=== PATIENT | male | born 1945 | race Caucasian/White ===

== ENCOUNTER 2018-02-08 21:41 | Outpatient (REF) | payer MEDICARE, SELFPAY ==
[2018-02-08 22:43] LABS: Anion Gap 9.2 mmol/L (3-11); BUN 16 mg/dL (7-18); CO2 26.8 mmol/L (21.0-32.0); CREATININE 1.04 mg/dL (0.70-1.30); Calcium 9.6 mg/dL (8.5-10.1); Chloride 101 mmol/L (98-107); Cholesterol 121 mg/dL (50-200); Glucose 217 mg/dL (70-100); HDL Cholesterol 33 mg/dL (40-60); LDL CHOLESTEROL 64 mg/dL (<100); Potassium 4.1 mmol/L (3.5-5.1); Sodium 137 mmol/L (136-145); Triglyceride 211 mg/dL (30-150)
== END 2018-02-08 22:01 ==
LOC: NCHCN 21:41
PROVIDERS: PCP Nurse Practitioner Family; Visit Provider Specialist/Technologist Athletic Trainer
DX: I10 Essential (primary) hypertension (principal); E11.40 Type 2 diabetes mellitus with diabetic neuropathy, unspecified; I73.9 Peripheral vascular disease, unspecified; K22.70 Barrett's esophagus without dysplasia
CPT/HCPCS: 80048; 80061; 83721

== ENCOUNTER → 2018-02-25 10:20 | Outpatient (CLI) | payer MEDICARE, SELFPAY ==
--- NOTE | 2018-02-25 09:19 | DI.RAD_ITS ---
SYMPTOM/DIAGNOSIS: CHRONIC LOW BACK PAIN, M54.5, NEURO CLAUDICATION SYMPTOMS, H/O BACK SURGERY, RECENT FALL LUMBAR SPINE: AP, lateral and bilateral oblique views. There are five lumbar type vertebral bodies. There is normal alignment. No spondylolysis or spondylolisthesis is seen. There are again seen post surgical changes and posterior spinal rods and intervertebral cage at L 4-5. The orthopedic hardware appears stable. No acute fractures or subluxations are seen in the lumbar spine. Moderate degenerative changes are present throughout the lumbar spine. Note is made of calcification of the abdominal aorta and aneurysmal dilatation of the distal aorta. This has been present on prior examinations. IMPRESSION: No acute fracture or subluxation in the lumbar spine. Moderate degenerative changes in the lumbar spine. Distal abdominal aortic aneurysm. For further evaluation, abdominal ultrasound may be considered.
== END ==
PROVIDERS: PCP Nurse Practitioner Family; Visit Provider Specialist/Technologist Athletic Trainer
DX: M54.5 Low back pain (principal); M47.816 Spondylosis without myelopathy or radiculopathy, lumbar region; I71.4 Abdominal aortic aneurysm, without rupture; Z98.890 Other specified postprocedural states
CPT/HCPCS: 72110

== ENCOUNTER 2018-02-26 01:52 | Outpatient (CLI) | payer MEDICARE, SELFPAY ==
--- NOTE | 2018-02-26 14:26 | DI.MRI_ITS ---
SYMPTOMS/DIAGNOSIS: CHRONIC LOW BACK PAIN, M54.5, WORSENING, H/O SPINE SURGERY, SEVERE BILATERAL NEUROPATHY MRI OF THE LUMBAR SPINE: Routine noncontrast examination was performed. The conus medullaris has a normal appearance and location. There is again seen an abdominal aortic aneurysm measuring 4.2 cm in AP diameter. This is unchanged. There are postsurgical changes of a prior laminectomy at L4-L5. At L5-S1, there is a disc herniation eccentric to the left causing mild left neural foraminal narrowing. This is unchanged compared to the prior examination. No significant central spinal canal stenosis is seen. At L4-L5, there is a persistent disc herniation eccentric to the right. There is no change in the size of the central spinal canal. There is moderate narrowing of the right neural foramen again noted. At L3-L4, there is disc desiccation. There is a diffuse disc bulge. These findings cause central spinal canal stenosis, which appears stable. No neural foraminal stenosis is seen. L2-3 and L1-2 show no focal disc herniation, central spinal canal or neural foraminal stenosis. IMPRESSION: 1. Stable postsurgical changes at L4-L5. 2. Stable degenerative changes throughout the lumbar spine resulting in right L4-5 and left L5-S1 neural foraminal stenosis. There is also narrowing of the central spinal canal at L3-4. These all appear stable.
== END 2018-02-26 02:12 ==
PROVIDERS: PCP Nurse Practitioner Family; Visit Provider Specialist/Technologist Athletic Trainer
DX: M54.5 Low back pain (principal); G89.29 Other chronic pain; M51.37 Other intervertebral disc degeneration, lumbosacral region; I71.4 Abdominal aortic aneurysm, without rupture
CPT/HCPCS: 72148

== ENCOUNTER 2018-03-23 08:48 | Outpatient (CLI) | payer MEDICARE, SELFPAY ==
--- NOTE | 2018-03-23 06:00 | DI.RAD_ITS ---
SYMPTOM/DIAGNOSIS: LUMBAR RADICULOPATHY, LUMBAR EPIDURAL STEROID INJECTION C-ARM: Fluoroscopy Time: 23.3 seconds Fluoroscopy was provided for guidance with lumbar spine pain clinic injections. Please see procedure note for details.
[2018-03-23 08:53] VITALS: PULSE 72; RESP 18; TEMP 36.7; O2SAT 100
[2018-03-23] MEDS: Omnipaque 240 MG/ML 50 ML BTL IJ (09:27)
--- NOTE | 2018-03-23 09:27 | PDOC.PAIN ---
Pain Clinic Procedure Note Current Active Problems Problem Status Onset Lumbar radiculitis Acute Lumbar Epidural Steroid Injection Procedure Note COMMENTS: I did review Ms. Emmanuel's note from 03/18/18 and his recent lumbar spine MRI. He has a L4-S1 fusion and adjacent segment disease at L3-L4. RASHAUN CASTAÑEDA has been referred to the [facility] for lumbar epidural steroid injection. The patient was greeted by the nurse who verified patients name and . Patient was then taken to the fluoroscopy suite. The patient was interviewed and the medial record reviewed. There were no medical, pharmacologic, radiographic, or other structural contraindications to attempting fluoroscopically guided lumbar epidural steroid injection. Risks and expected side effects as well as potential benefits of the procedure were reviewed and voiced concerns expressed. The patient consent form was signed and witnessed. Standard patient time-out procedure was performed. The patient was placed in the prone position on the fluoroscopy table and automated blood pressure cuff and pulse oximeter applied. The skin entry point for entering/approaching the epidural space at the right side of the L3-L4 interlaminar space and marked. Following thorough chlorhexadine preparation of the skin and draping and 1% lidocaine infiltration of the skin entry point and subcutaneous tissues, a 18 gauge Touhy needle was placed under fluoroscopic guidance and with loss of resistance technique into the epidural space. Needle tip placement and depth were aided and confirmed by fluoroscopy. There was no paresthesia or return of blood or CSF through the needle. 1 cc's of Omnipaque 240 was injected with clear epidural spread confirmed with fluoroscopy. 80mg depomedrol was injected. There was not any unusual discomfort expressed by RASHAUN CASTAÑEDA. Patient's vital signs were stable throughout the procedure and were as recorded in nursing records. Follow up plans and appointments were discussed with patient. Post procedure instruction was given as documented in nursing records and having met discharge criteria and was discharged from the [facility]. COMMENTS: If this procedure is found to be helpful, it can be completed up to 3 times per year.
[2018-03-23 09:28] VITALS: BP 130/67; PULSE 75; RESP 15; O2SAT 100
[2018-03-23] MEDS: methylPREDNISolone ACETATE 80 MG/ML VIAL IM (09:28)
== END 2018-03-23 09:08 ==
PROVIDERS: PCP Nurse Practitioner Family; Visit Provider Preventive Medicine Occupational Medicine
DX: M54.16 Radiculopathy, lumbar region (principal)
CPT/HCPCS: 62321; 72100; J1040; Q9967

== ENCOUNTER 2018-06-02 10:21 | Outpatient (CLI) | payer MEDICARE, SELFPAY ==
[2018-06-02 11:04] LABS: CREATININE 1.04 mg/dL (0.70-1.30)
[2018-06-02] MEDS: Omnipaque 350 MG/ML 100 ML BTL IJ (11:33)
--- NOTE | 2018-06-02 11:35 | DI.CT_ITS ---
SYMPTOMS/DIAGNOSIS: PAIN, ABDOMINAL AORTIC ANEURYSM CT ANGIOGRAPHY OF THE ABDOMEN AND PELVIS: Routine examination was performed. Comparison is 03/18/17. Pulmonary fibrotic changes are seen in the lung bases. There is extensive atherosclerosis of the abdominal aorta. There is an infrarenal abdominal aortic aneurysm measuring 4.5 cm transverse x 4.3 cm AP. 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 The celiac axis and superior mesenteric artery appear patent. There is atherosclerosis at the origins of the renal arteries, but no significant stenosis or occlusion is present. The liver, gallbladder, pancreas, spleen and adrenal glands are unremarkable. The kidneys show normal and symmetric enhancement. There are bilateral nonobstructing renal calculi. The urinary bladder is intact. The prostate gland appears enlarged and it does appear to impinge upon the base of the urinary bladder. The bowel shows no evidence of obstruction or inflammation. No findings to suggest an acute appendicitis are present. There is no significant abdominal or pelvic adenopathy, ascites or pneumoperitoneum. Note is made of a cyst in the left lobe of the liver. This is unchanged. Postsurgical changes are again seen in the lower lumbar spine. There are degenerative changes present throughout the spine. IMPRESSION: 1. Stable 4.5 x 4.3 cm infrarenal abdominal aortic aneurysm. 2. 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
== END 2018-06-02 10:41 ==
PROVIDERS: PCP Nurse Practitioner Family; Visit Provider Physician Assistant Surgical
DX: R10.9 Unspecified abdominal pain; I71.4 Abdominal aortic aneurysm, without rupture; I74.5 Embolism and thrombosis of iliac artery; J84.10 Pulmonary fibrosis, unspecified; N20.0 Calculus of kidney; N40.0 Benign prostatic hyperplasia without lower urinary tract symptoms; E11.9 Type 2 diabetes mellitus without complications; I10 Essential (primary) hypertension; E78.00 Pure hypercholesterolemia, unspecified
CPT/HCPCS: 74174; 82565; J3490

== ENCOUNTER 2018-08-20 12:52 | Emergency (ER) | payer MEDICARE, SELFPAY ==
[2018-08-20 13:04] VITALS: BP 138/77; PULSE 72; RESP 16; TEMP 36.6; O2SAT 96
[2018-08-20 14:15] LABS: Abs Immature Grans 0.04 k/cumm (0.0-0.09); Absolute Basophil Count 0.02 k/cumm (0.0-0.2); Absolute Lymphocyte Count 2.12 k/cumm (1.2-3.4); Absolute Monocyte Count 0.83 k/cumm (0.11-0.7); Absolute Neutrophil Count 6.42 k/cumm (1.2-6.7); Basophils % 0.2; HCT 40.8 % (40.0-50.0); HGB 13.9 g/dL (13.5-17.5); Immature Grans % 0.4; Lymphocytes % 21.3; Mean Corp. HGB Concentration 34.1 g/dL (32.0-36.0); Mean Corpuscular Hemoglobin 30.8 pg (27.0-33.0); Mean Corpuscular Volume 90.3 fL (80-95); Monocytes % 8.4; Neutrophils % 64.7; Platelet Count 185 x1000/uL (130-400); RBC 4.52 m/cumm (4.50-6.00); RBC Distribution Width 13.3 % (11.8-14.1); White Blood Cell Count 9.93 k/cumm (4.4-10.8)
[2018-08-20 14:19] LABS: Bilirubin Negative (Negative); Blood Negative (Negative); Clarity Clear (Clear); Glucose Negative (Negative); Ketones Negative (Negative); Leukocyte Esterase Trace (Negative); Nitrite Negative (Negative); Specific Gravity 1.015 (1.005-1.025)
[2018-08-20] MEDS: Omnipaque 350 MG/ML 100 ML BTL IJ (14:26)
[2018-08-20 14:30] LABS: ALT 59 U/L (12-78); AST 25 U/L (15-37); Albumin 3.3 g/dL (3.4-5.0); Alkaline Phosphatase 97 U/L (46-116); Anion Gap 10.3 mmol/L (3-11); BUN 12 mg/dL (7-18); Bilirubin, Total 0.6 mg/dL (0.2-1.0); CO2 24.7 mmol/L (21.0-32.0); CREATININE 0.98 mg/dL (0.70-1.30); Calcium 9.4 mg/dL (8.5-10.1); Chloride 101 mmol/L (98-107); Glucose 120 mg/dL (70-100); Sodium 136 mmol/L (136-145); Total Protein 6.8 g/dL (6.4-8.2)
--- NOTE | 2018-08-20 14:31 | DI.CT_ITS ---
SYMPTOMS/DIAGNOSIS: AAA REPAIRED 1 WK AGO, FEM STENTS PLACED LT FLANK CT ANGIOGRAPHY ABDOMEN AND PELVIS: CT angiography was performed with multi slice acquisition and multi planar and 3D reconstruction. CT angiography of the abdomen and pelvis was performed with a bolus infusion of 100 cc's of Omnipaque 350. The patient has reportedly had a recent aortoiliac stent placed for abdominal aortic aneurysm. Stent noted in place which appears to be an aortobiiliac stent. No evidence of leakage. 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 SMA and renal arteries appear intact bilaterally. OLE appears to reconstitute by collateral circulation. No evidence of stent occlusion. No evidence of occlusion of internal or external iliac arteries on either side. No free air or free intraperitoneal fluid. No retroperitoneal hematoma. Liver, spleen, and pancreas appear normal. Gallbladder and bile ducts are CT normal. The adrenals are unremarkable bilaterally. Kidneys are unremarkable bilaterally. No evidence of urinary tract obstruction or calcification. No significant abdominal wall hernia seen. No abdominal or pelvic adenopathy seen. No evidence of bowel obstruction. Appendix is not specifically visualized but there is no evidence of appendicitis or diverticulitis. CONCLUSION: No evidence of acute abdominal process.
[2018-08-20 14:36] LABS: Epithelial Cells Rare HPF (Negative); RBC 0-2 (0-2)
[2018-08-20 14:37] LABS: Bacteria Rare HPF (Negative); C & S Indicated? Yes; Casts Negative LPF (Negative); Crystals Negative HPF (Negative); Mucus Negative (Negative)
--- NOTE | 2018-08-20 14:52 | ED.GENADUL_ITS ---
Discharge Plan Disposition Patient Disposition: HOME Condition: Good Discharge Details Chief Complaint: FlankPain Clinical Impression: Left flank pain, Constipation Primary Care Provider: Volodymyr Trujillo ED Provider: Roge Sky Home Meds and New Rx's Prescriptions: New cephalexin [Keflex] 500 mg capsule 500 mg PO QID 7 Days Qty: 28 RF: 0 No Action acetaminophen [Tylenol Extra Strength] 500 mg tablet 1,000 mg PO TID PRNRF: 0 albuterol sulfate [Ventolin HFA] 90 mcg/actuation HFA aerosol inhaler 1 - 2 puff IH Q6H PRNRF: 0 atorvastatin 80 mg tablet 80 mg PO DAILY RF: 0 gabapentin 600 mg tablet 600 mg PO QID RF: 0 glipizide 10 MG tablet 10 mg PO DAILY RF: 0 finasteride 5 MG tablet 5 mg PO DAILY RF: 0 metformin [Glucophage] 1,000 mg tablet 1,000 mg PO BID RF: 0 lisinopril 5 MG tablet 5 mg PO DAILY AM RF: 0 pantoprazole [Protonix] 20 MG tablet,delayed release (DR/EC) 20 mg PO DAILY AM RF: 0 Discharge Instructions Instructions: Constipation (ED), Flank Pain (ED) Additional Instructions: Please take [id number] Colace as needed. Please use an [id number] enema to help with your constipation. If you notice any burning when you pee, or worsening of your symptoms please take the antibiotic for a potential urinary tract infection. If you notice any worsening of your symptoms, or any new symptoms such as vomiting, diarrhea, fever, chills, shortness of breath, chest pain, numbness, weakness, or fainting , please return immediately to the emergency department for reevaluation. Please follow up with your primary care provider as soon as possible for reassessment and reevaluation. As always, it was a pleasure participating in your medical care today. Referrals: Volodymyr Trujillo [Primary Care Provider] - Medical Decision Making This is a pleasant 73-year-old male with a past medical history of AAA repair and femoral stent placement, both of which were done emergently 4 days ago, who presents today for mild left-sided flank pain which she states is actually getting better over the last 24 hours. It seems to be improved with having bowel movements. He does appear notably constipated and is only having small amounts of firm stool. He denies any urinary complaints but does state that the symptoms feel slightly similar to previous kidney stones. Exam demonstrates no evidence of bounding aneurysm, vascular exam appears to be at baseline, with no evidence of acute occlusion. CT scan demonstrates no evidence of acute abdominal process, worsening aneurysm or other atypical component. Repeat physical exam demonstrates continued normal stable vital signs, with an unremarkable abdominal exam. Urinalysis shows no evidence of significant infection or blood. There is 3-5 WBCs and trace leukocyte esterase. I feel that this is insignificant. The patient certainly shows no clinical signs of pyelonephritis with no fever chills or white count. Renal function is stable. This time I feel that the patient's symptoms are most likely secondary to a psoas muscle strain potentially from the recent surgery, potentially constipation, or other nonemergent etiology. However with a mild leukocyte esterase, and is mild flank pain we did recommend initial management with Colace, heating pad, and enema to help resolve his constipation. If these do not improve his symptoms and the patient does develop dysuria or hematuria I have given him a prescription for which he can fill for urinary tract infection which clinically at this time does not appear to be of any significance. Discussed red flags which to return, and the importance of close follow-up. I have extensively reviewed the treatment plan and discharge instructions with the patient and their family. I have addressed all patient concerns at this time. The patient and family was made aware of what symptoms to monitor for that would warrant a return to the emergency department. Discussed the plan with the george ent and family, they demonstrate verbal understanding and agreement with our assessment and plan at this time. CT ANGIOGRAPHY ABDOMEN AND PELVIS: CT angiography was performed with multi slice acquisition and multi planar and 3D reconstruction. CT angiography of the abdomen and pelvis was performed with a bolus infusion of 100 cc's of Omnipaque 350. The patient has reportedly had a recent aortoiliac stent placed for abdominal aortic aneurysm. Stent noted in place which appears to be an aortobiiliac stent. No evidence of leakage. 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 SMA and renal arteries appear intact bilaterally. OLE appears to reconstitute by collateral circulation. No evidence of stent occlusion. No evidence of occlusion of internal or external iliac arteries on either side. No free air or free intraperitoneal fluid. No retroperitoneal hematoma. Liver, spleen, and pancreas appear normal. Gallbladder and bile ducts are CT normal. The adrenals are unremarkable bilaterally. Kidneys are unremarkable bilaterally. No evidence of urinary tract obstruction or calcification. No s ignificant abdominal wall hernia seen. No abdominal or pelvic adenopathy seen. No evidence of bowel obstruction. Appendix is not specifically visualized but there is no evidence of appendicitis or diverticulitis. CONCLUSION: No evidence of acute abdominal process. HPI General Date/Time Provider Initiated Documentation: 08/20/18 13:00 . HPI Narrative: This is a 73-year-old male who presents today for evaluation of left- sided flank pain. 4 days ago at [facility] the patient had femoral stents placed for chronic vascular stenosis, he also has a AAA which had a patch placed at that time. Neither surgery was emergent. He has been mildly sore since the procedure, however over the last 36 hours the patient has had development of mild left-sided flank achiness. It is worse with movement, and seems to be associated with notable constipation. He states that when he does have a small bowel movement he has significant improvement of the pain. He states that over the last 24 hours the pain is still at notably better but is still present. He does have a history of kidney stones, diabetes, and a TIA in the past. He does take a daily aspirin. He states that the symptoms feel similar to his previous kidney stones. He denies any dysuria, hematuria, fever, chills, increased urinary frequency, nausea, vomiting or diarrhea. He denies any other complaints at this time. He denies any new weakness of his lower extremities or change in color for his lower extremities. He denies any IV or illicit drug use or pertinent family history. Related Data Home Medications Medication Instructions Recorded Confirmed finasteride 5 mg PO DAILY 05/17/14 04/26/18 glipizide 10 mg PO DAILY 05/17/14 04/26/18 lisinopril 5 mg PO DAILY AM 03/16/17 04/26/18 pantoprazole [Protonix] 20 mg PO DAILY AM 03/16/17 04/26/18 albuterol sulfate HFA 90 1 - 2 puff IH Q6H PRN gm 03/10/18 04/26/18 mcg/actuation aerosol inhaler atorvastatin 80 mg tablet 80 mg PO DAILY 03/10/18 04/26/18 gabapentin 600 mg tablet 600 mg PO QID tab-cap 03/10/18 04/26/18 metformin 1,000 mg tablet 1,000 mg PO BID tab 03/10/18 04/26/18 acetaminophen 500 mg tablet 1,000 mg PO TID PRN tab 03/18/18 04/26/18 cephalexin [Keflex] 500 mg PO QID 7 Days #28 cap 08/20/18 Previous Rx's Medication Instructions Recorded cephalexin [Keflex] 500 mg PO QID 7 Days #28 cap 08/20/18 Allergies Allergy/AdvReac Type Severity Reaction Status Date / Time No Known Drug Allergies Allergy Unverified 04/26/18 11:45 General Stated Complaint: FlankPain SARA: 3 Review of Systems Review of Systems All systems reviewed & are unremarkable except as noted in HPI and below PFSH Medical History Abscess of prostate (Acute) Cholelithiasis (Acute) Malignant neoplasm of bladder (Acute) Barretts esophagus (Chronic) Benign prostatic hyperplasia (Chronic) COPD (chronic obstructive pulmonary disease) (Chronic) Chronic low back pain (Chronic) 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 Father No problems noted. Social History Smoking/Tobacco Use Status: Current every day Alcohol Intake: never Drug use: Never Substance use type: does not use What is your relationship status?: living with partner Panel score (0-1 are the most socially isolated patients): 1 Mena/Yarsani: [employer] Seatbelt use: always Helmet use: Yes Working smoke detector in home: Yes Fire extinguisher in home: Yes Carbon monox detector in home: Yes Firearms in home: Yes Do you feel safe at home: Yes Do you feel safe in your relationship?: Yes Exam Narrative Exam Narrative: 1.Const: Well-nourished, Well-developed, appearing stated age 2.Eyes: PERRL, no conjunctival injection, and symmetrical lids. 3.ENT: Atraumatic external nose and ears. Moist MM. Neck: Symmetric, trachea midline, No thyromegaly. 4.CVS: +S1/S2, No murmurs or gallops. Peripheral pulses 2+ and equal in all extremities. Brisk capillary refill in all extremities. 5.RESP: Unlabored respiratory effort. Clear to auscultation bilaterally. No wheezes rales or rhonchi 6.GI: Soft, Nontender/Nondistended, No hepatosplenomegaly. No guarding or rebound. No pulsatile abdominal mass, no guarding or rebound in all quadrants of the abdomen. No flank or CVA tenderness. Postoperative sites demonstrate minimal bruising, but no evidence of focal aneurysm, or significant groin tenderness. Testicular exam demonstrates no evidence of significant testicular tenderness, no clinical evidence of torsion. Minimal swelling of the scrotum. 7.MSK: Normocephalic/Atraumatic, Extremities w/o deformity or ttp No cyanosis or clubbing, Normal movement of all extremities. No evidence of cool pale legs. Pulses are faint but present bilaterally, capillary refill is 3 seconds. 8.Skin: Warm, Dry. No rashes or lesions. 9.Neuro: pharmaceutical service representative II-XII grossly intact. Sensation grossly intact, no focal neurologic deficits. 10.Psych: (AAO) x3. Appropriate mood and affect Course Vital Signs Temperature 36.6 C 08/20/18 13:04 Pulse 72 08/20/18 13:04 Respiratory Rate 16 08/20/18 13:04 Blood Pressure 138/77 08/20/18 13:04 Pulse Oximetry 96 08/20/18 13:04 Temperature 36.6 C 08/20/18 13:04 Temperature Source Skin 08/20/18 13:04 Pulse 72 08/20/18 13:04 Respiratory Rate 16 08/20/18 13:04 Blood Pressure 138/77 08/20/18 13:04 Blood Pressure Position Sitting 08/20/18 13:04 Pulse Oximetry 96 08/20/18 13:04 Oxygen Delivery Method Room Air 08/20/18 13:04 Oxygen Flow Rate 0 08/20/18 13:04 Lab/Test Results Lab/Test Results: 08/20/18 14:05 Urine - Reflex from Ua Urine Culture - Pending Laboratory Tests Range/Units 08/20/18 08/20/18 08/20/18 14:00 14:00 14:05 WBC (4.4-10.8) k/cumm 9.93 RBC (4.50-6.00) m/cumm 4.52 Hgb (13.5-17.5) g/dL 13.9 Hct (40.0-50.0) % 40.8 MCV (80-95) fL 90.3 MCH (27.0-33.0) pg 30.8 MCHC (32.0-36.0) g/dL 34.1 RDW (11.8-14.1) % 13.3 Plt Count (130-400) x1000/uL 185 MPV (8.0-11.0) fL 10.0 Immature Gran % 0.4 Neutrophils % 64.7 Lymphocytes % 21.3 Monocytes % 8.4 Eosinophils % 5.0 Basophils % 0.2 Absolute Neutrophils (1.2-6.7) k/cumm 6.42 Absolute Lymphocytes (1.2-3.4) k/cumm 2.12 Absolute Monocytes (0.11-0.7) k/cumm 0.83 H Absolute Eosinophils (0.0-0.7) k/cumm 0.50 Absolute Basophils (0.0-0.2) k/cumm 0.02 Sodium (136-145) mmol/L 136 Potassium (3.5-5.1) mmol/L 4.0 Chloride (98-107) mmol/L 101 Carbon Dioxide (21.0-32.0) mmol/L 24.7 Anion Gap (3-11) mmol/L 10.3 BUN (7-18) mg/dL 12 Creatinine (0.70-1.30) mg/dL 0.98 Estimated GFR/1.73 m2 (mL/min/1.73m2) >= 60.00 Glucose (70-100) mg/dL 120 H Calcium (8.5-10.1) mg/dL 9.4 Total Bilirubin (0.2-1.0) mg/dL 0.6 AST (15-37) U/L 25 ALT (12-78) U/L 59 Alkaline Phosphatase (46-116) U/L 97 Total Protein (6.4-8.2) g/dL 6.8 Albumin (3.4-5.0) g/dL 3.3 L Urine Color (Yellow) Yellow Urine Clarity (Clear) Clear Urine pH (5-8) 6.0 Ur Specific [place] (1.005-1.025) 1.015 Urine Protein (Negative) mg/dL Negative Urine Ketones (Negative) mg/dL Negative Urine Blood (Negative) Negative Urine Nitrite (Negative) Negative Urine Bilirubin (Negative) Negative Urine Urobilinogen (Up TO 0.2) EU/dL 1.0 H Ur Leukocyte Esterase (Negative) Trace H Urine RBC (0-2) 0-2 Urine WBC (0-5) HPF 3-5 Ur Epithelial Cells (Negative) HPF Rare Urine Crystals (Negative) HPF Negative Urine Bacteria (Negative) HPF Rare Urine Casts (Negative) LPF Negative Urine Mucus (Negative) Negative Ur Culture Indicated? Yes Urine Glucose (Negative) mg/dL Negative
[2018-08-20 15:22] VITALS: BP 138/77; PULSE 72; RESP 16; TEMP 36.6; O2SAT 96
== END 2018-08-20 15:22 | disposition home or self-care (01) ==
PROVIDERS: Emergency Provider Student in an Organized Health Care Education/Training Program; PCP Specialist/Technologist Athletic Trainer
DX: R10.9 Unspecified abdominal pain (principal); K59.00 Constipation, unspecified; E11.9 Type 2 diabetes mellitus without complications; J44.9 Chronic obstructive pulmonary disease, unspecified; Z95.828 Presence of other vascular implants and grafts; F17.210 Nicotine dependence, cigarettes, uncomplicated; I10 Essential (primary) hypertension
CPT/HCPCS: 36415; 80053; 99285; 74174; 81003; 81015; 85025; 87086; 99284; J3490

== ENCOUNTER 2019-05-19 12:35 | Emergency (ER) | payer MEDICARE, SELFPAY ==
[2019-05-19 12:41] VITALS: BP 151/69; PULSE 78; RESP 16; TEMP 36.4; O2SAT 98
--- NOTE | 2019-05-19 13:00 | DI.RAD_ITS ---
EXAM: XR RIBS RT W PA LAT CHEST CLINICAL HISTORY: Right rib pain fall TECHNIQUE: 2D digital imaging was performed. COMPARISON: CHEST 2 VIEWS PA,LAT from 08/04/2016 CT ABDOMEN/ PELVIS CTA from 08/20/2018 FINDINGS: MEDIASTINUM: Normal. HEART: Normal. PULMONARY VASCULATURE: Normal. LUNGS: Unchanged scarring in the right lung base. No focal consolidating infiltrates. PLEURAL SPACE: No pleural effusion or pneumothorax. BONE:No rib fractures identified. Degenerative changes are seen in the spine. OTHER FINDINGS:Aorta iliac stent is again noted in the abdomen. IMPRESSION: No acute pulmonary findings. No right rib fracture. DATA REPOSITORY: RADIATION DOSE DELIVERED:
--- NOTE | 2019-05-19 13:10 | W.ED.GENAD ---
Discharge Plan Disposition Patient Disposition: HOME Condition: Stable Discharge Details Chief Complaint: Chest/Rib Clinical Impression: Rib pain on right side Primary Care Provider: Volodymyr Trujillo ED Provider: Alda Myers Home Meds and New Rx's Prescriptions: New ibuprofen 600 mg tablet 600 mg PO Q6H PRN (Reason: fever or pain) Qty: 20 RF: 0 Continued albuterol sulfate [Ventolin HFA] 90 mcg/actuation HFA aerosol inhaler 1 - 2 puff IH Q6H PRNRF: 0 atorvastatin 80 mg tablet 80 mg PO DAILY RF: 0 gabapentin 600 mg tablet 600 mg PO QID RF: 0 glipizide 10 MG tablet 10 mg PO DAILY RF: 0 finasteride 5 MG tablet 5 mg PO DAILY RF: 0 metformin [Glucophage] 1,000 mg tablet 1,000 mg PO BID RF: 0 lisinopril 5 MG tablet 5 mg PO DAILY AM RF: 0 pantoprazole [Protonix] 20 MG tablet,delayed release (DR/EC) 20 mg PO DAILY AM RF: 0 aspirin [Aspir-81] 81 mg Tablet,Delayed Release (Dr/Ec) 81 mg PO DAILY RF: 0 Discharge Instructions Instructions: Chest Wall Pain (ED) Additional Instructions: Follow up with primary care provider in 3-5 days. Return to ED sooner if any worsening or concerns. Increase oral fluids. Please take Tylenol or Ibuprofen with food every 4-6 hours as needed for pain and swelling. Referrals: Volodymyr Trujillo [Primary Care Provider] - Medical Decision Making 23-year-old male presents with right sided rib pain after a fall onto ice approximately 1-1/2 weeks ago. Patient states that he heard a pop night before last and had increased pain. He denies fever chills or productive cough. He denies any other symptoms. Does have a history of a AAA, Campoverde's esophagus, BPH, chronic low back pain, and type 2 diabetes. COMPARISON: CHEST 2 VIEWS PA,LAT from 08/04/2016 CT ABDOMEN/ PELVIS CTA from 08/20/2018 FINDINGS: MEDIASTINUM: Normal. HEART: Normal. PULMONARY VASCULATURE: Normal. LUNGS: Unchanged scarring in the right lung base. No focal consolidating infiltrates. PLEURAL SPACE: No pleural effusion or pneumothorax. BONE:No rib fractures identified. Degenerative changes are seen in the spine. OTHER FINDINGS:Aorta iliac stent is again noted in the abdomen. IMPRESSION: No acute pulmonary findings. No right rib fracture. Discussed with patient x-ray results noted times unclear what is causing his symptoms other than musculoskeletal chest wall pain. Offered to possibly draw blood and get a urine to rule out other underlying pathophysiology patient declined at this time. He requests a ibuprofen prescription, prescription written for 600 mg ibuprofen 3 times a day as needed for pain. Given strict return instructions, verbalized understanding. Patient remained hemodynamically stable throughout stay. HPI General Mode of arrival: ambulatory. Date/Time Provider Initiated Documentation: 05/19/19 13:02. Limitations to Documentation: no limitations. Information obtained by: patient. HPI Narrative: 23-year-old male presents with right sided rib pain after a fall onto ice approximately 1-1/2 weeks ago. Patient states that he heard a pop night before last and had increased pain. He denies fever chills or productive cough. He denies any other symptoms. Does have a history of a AAA, Campoverde's esophagus, BPH, chronic low back pain, and type 2 diabetes. Related Data Home Medications Medication Instructions Recorded Confirmed finasteride 5 mg PO DAILY 05/17/14 05/19/19 glipizide 10 mg PO DAILY 05/17/14 05/19/19 lisinopril 5 mg PO DAILY AM 03/16/17 05/19/19 pantoprazole [Protonix] 20 mg PO DAILY AM 03/16/17 05/19/19 albuterol sulfate 90 mcg/actuation 1 - 2 puff IH Q6H PRN gm 03/10/18 05/19/19 aerosol inhaler atorvastatin 80 mg tablet 80 mg PO DAILY 03/10/18 05/19/19 gabapentin 600 mg tablet 600 mg PO QID tab-cap 03/10/18 05/19/19 metformin 1,000 mg tablet 1,000 mg PO BID tab 03/10/18 05/19/19 aspirin [Aspir-81] 81 mg PO DAILY 05/19/19 05/19/19 ibuprofen 600 mg PO Q6H PRN #20 tab 05/19/19 Previous Rx's Medication Instructions Recorded ibuprofen 600 mg PO Q6H PRN #20 tab 05/19/19 Allergies Allergy/AdvReac Type Severity Reaction Status Date / Time No Known Drug Allergies Allergy Unverified 05/19/19 12:46 General Stated Complaint: Chest/Rib SARA: 3 Review of Systems Narrative: Constitutional: Negative for weight loss, alert and oriented, well groomed, normal body habitus, appears comfortable. HEENT: Denies trauma, headaches, blurry vision, nasal discharge, sore throat, trouble swallowing. Chest: Denies palpitations, irregular rhythm, hypertension. Complaining of right-sided lower rib pain after a fall. Respiratory: Denies Shortness of breath, cough, hemoptysis. GI: Denies abdominal pain, nausea, vomiting, diarrhea, constipation. : Denies dysuria, hematuria, flank pain, rectal bleeding. Neuro: Denies dizziness, blurry vision, weakness, syncope, headache or facial numbness. Hematologic: Denies easy bruising, intolerance to heat or cold, hair loss. 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 Father No problems noted. Social History Smoking/Tobacco Use Status: Current every day Tobacco Type: cigarettes Alcohol Intake: never Drug use: Never Substance use type: does not use What is your relationship status?: living with partner Panel score (0-1 are the most socially isolated patients): 1 Mena/Lutheran: jew Seatbelt use: always Helmet use: Yes Working smoke detector in home: Yes Fire extinguisher in home: Yes Carbon monox detector in home: Yes Firearms in home: Yes Do you feel safe at home: Yes Do you feel safe in your relationship?: Yes Exam Narrative Exam Narrative: Constitutional: Allert and oriented x3. Appears stated age. Normal body habitus. Head: Normocephalic, no trauma. Eyes: Pupils PERRLA, Red reflex noted, EOM's intact. Eyelids symmetrical withour lesions, discharge, or swelling. ENT: Bilateral TM's WNL, External ear normal to inspection, no mastoid TTP, swelling, or erythema, Nasal turbinates WNL, no nasal discharge. Normal dentition, Posterior pharynx WNL, no exudate. Chest: RRR, Normal S1, S2, distal pulses intact. Chest wall is tender to palpation over the right posterior flank and right lateral flank. No crepitus or step-off palpated. Resp: Lungs diminished to auscultation bilaterally, no wheezes, rales, or rhonchi. Musculoskeletal: Normal gait, 5/5 strength to all four extremities. Skin: No suspicious rashes or lesions. Capillary refill less than 2 sec. Neurologic: Cranial nerves II-XII intact. Alert and oriented x 3. DTR's intact. Hematologic/Lymphatic: No ecchymosis, no lymphadenopathy. Course Vital Signs Vital signs: Vital Signs Temperature 36.4 C L 05/19/19 12:41 Pulse 78 05/19/19 12:41 Respiratory Rate 16 05/19/19 12:41 Blood Pressure 151/69 H 05/19/19 12:41 Pulse Oximetry 98 05/19/19 12:41 Temperature 36.4 C L 05/19/19 12:41 Temperature Source Temporal Artery Scan 05/19/19 12:41 Pulse 78 05/19/19 12:41 Respiratory Rate 16 05/19/19 12:41 Respiratory Effort Non-Labored 05/19/19 13:06 Respiratory Depth Normal 05/19/19 13:06 Respiratory Pattern Normal 05/19/19 13:06 Blood Pressure 151/69 H 05/19/19 12:41 Blood Pressure Position Sitting 05/19/19 12:41 Pulse Oximetry 98 05/19/19 12:41 Oxygen Delivery Method Room Air 05/19/19 12:41 Oxygen Flow Rate 0 05/19/19 12:41 Pain Level 7 05/19/19 13:06
[2019-05-19] MEDS: Acetaminophen 500 MG TAB PO (13:32)
[2019-05-19 14:09] VITALS: BP 153/67; PULSE 68; RESP 16; TEMP 36.7; O2SAT 96
[2019-05-19 14:15] VITALS: BP 153/67; PULSE 56; RESP 16; TEMP 36.7; O2SAT 97
== END 2019-05-19 14:17 | disposition home or self-care (01) ==
PROVIDERS: Emergency Provider Registered Nurse Emergency; PCP Specialist/Technologist Athletic Trainer
DX: R07.81 Pleurodynia (principal); W00.0XXA Fall on same level due to ice and snow, initial encounter; F17.210 Nicotine dependence, cigarettes, uncomplicated; E11.9 Type 2 diabetes mellitus without complications; Z79.84 Long term (current) use of oral hypoglycemic drugs; J44.9 Chronic obstructive pulmonary disease, unspecified; I10 Essential (primary) hypertension
CPT/HCPCS: 99283; 71046; 71100

== ENCOUNTER 2019-08-29 14:37 | Outpatient (REF) | payer MEDICARE, SELFPAY ==
[2019-08-29 19:47] LABS: ALT 19 U/L (16-63); AST 14 U/L (15-37); Albumin 3.9 g/dL (3.4-5.0); Alkaline Phosphatase 93 U/L (46-116); BUN 22 mg/dL (7-18); Bilirubin, Total 0.5 mg/dL (0.2-1.0); CREATININE 0.97 mg/dL (0.70-1.30); Calcium 9.8 mg/dL (8.5-10.1); Chloride 104 mmol/L (98-107); Glucose 80 mg/dL (74-106); Potassium 4.5 mmol/L (3.5-5.1); Sodium 140 mmol/L (136-145); Total Protein 6.9 g/dL (6.4-8.2)
== END 2019-08-29 14:57 ==
LOC: NCHCN 14:37
PROVIDERS: PCP Specialist/Technologist Athletic Trainer; Visit Provider Nurse Practitioner Family
DX: I10 Essential (primary) hypertension (principal); E11.40 Type 2 diabetes mellitus with diabetic neuropathy, unspecified
CPT/HCPCS: 80053

== ENCOUNTER 2020-09-05 08:38 | Outpatient (REF) | payer MEDICARE, SELFPAY ==
[2020-09-05 14:38] LABS: Anion Gap 11.1 mmol/L (3-11); BUN 20 mg/dL (7-18); CO2 25.9 mmol/L (21.0-32.0); Calcium 9.3 mg/dL (8.5-10.1); Chloride 105 mmol/L (98-107); Glucose 113 mg/dL (74-106); Potassium 4.5 mmol/L (3.5-5.1); Sodium 142 mmol/L (136-145)
[2020-09-05 14:54] LABS: Hemoglobin A1C 6.9 % (<5.7)
[2020-09-05 20:05] LABS: Calculated LDL 59 mg/dL (<100); Cholesterol 120 mg/dL (<200); HDL Cholesterol 37 mg/dL (40-60); Triglyceride 120 mg/dL (<150)
== END 2020-09-05 08:39 | disposition home or self-care (01) ==
LOC: NCHCN 08:38
PROVIDERS: PCP Specialist/Technologist Athletic Trainer; Visit Provider Nurse Practitioner Family
DX: Z00.00 Encounter for general adult medical examination without abnormal findings (principal); E11.49 Type 2 diabetes mellitus with other diabetic neurological complication
CPT/HCPCS: 80048; 80061; 83036

== ENCOUNTER 2021-11-08 19:39 | Outpatient (REF) | payer MEDICARE, SELFPAY | END 2021-11-08 19:40 | disposition home or self-care (01) | LOC: NCHCN 19:39 | PROVIDERS: PCP Specialist/Technologist Athletic Trainer; Visit Provider Nurse Practitioner Family | DX: R30.0 Dysuria (principal) | CPT/HCPCS: 87086 ==

== ENCOUNTER → 2021-12-04 12:37 | Outpatient (BNVA) | payer MEDICARE, SELFPAY | PROVIDERS: PCP Specialist/Technologist Athletic Trainer; Referring Provider Specialist/Technologist Athletic Trainer; Visit Provider Nurse Practitioner Gerontology | DX: N47.1 Phimosis (principal); R36.9 Urethral discharge, unspecified | CPT/HCPCS: 99215 ==

== ENCOUNTER 2021-12-04 18:57 | Outpatient (REF) | payer MEDICARE, SELFPAY | END 2021-12-04 18:58 | disposition home or self-care (01) | LOC: LBN 18:57 | PROVIDERS: PCP Specialist/Technologist Athletic Trainer; Visit Provider Nurse Practitioner Gerontology | DX: R36.0 Urethral discharge without blood (principal) | CPT/HCPCS: 87077; 87070; 87186; 87205 ==

== ENCOUNTER 2021-12-05 10:05 | Outpatient (REF) | payer MEDICARE, SELFPAY ==
[2021-12-05 15:35] LABS: Anion Gap 6.9 mmol/L (3-11); BUN 18 mg/dL (7-18); CO2 30.1 mmol/L (21.0-32.0); CREATININE 0.9 mg/dL (0.70-1.30); Calcium 9.3 mg/dL (8.5-10.1); Chloride 101 mmol/L (98-107); Estimated GFR 87.42 (mL/min/1.73m2); Glucose 138 mg/dL (74-106); Sodium 138 mmol/L (136-145)
== END 2021-12-05 10:06 | disposition home or self-care (01) ==
LOC: NCHCN 10:05
PROVIDERS: PCP Specialist/Technologist Athletic Trainer; Visit Provider Nurse Practitioner Family
DX: E11.40 Type 2 diabetes mellitus with diabetic neuropathy, unspecified (principal)
CPT/HCPCS: 80048; 83036

== ENCOUNTER → 2021-12-26 13:40 | Outpatient (BNVA) | payer MEDICARE, SELFPAY | PROVIDERS: PCP Nurse Practitioner Family; Referring Provider Specialist/Technologist Athletic Trainer; Visit Provider Nurse Practitioner Gerontology | DX: R36.9 Urethral discharge, unspecified (principal) | CPT/HCPCS: 99213 ==

== ENCOUNTER → 2022-01-07 08:15 | Outpatient (BNVA) | payer MEDICARE, SELFPAY | PROVIDERS: PCP Nurse Practitioner Family; Referring Provider Nurse Practitioner Family; Visit Provider Nurse Practitioner Gerontology | DX: R30.0 Dysuria (principal); N40.1 Benign prostatic hyperplasia with lower urinary tract symptoms; N39.43 Post-void dribbling | CPT/HCPCS: 51798; 81003; 99213 ==

== ENCOUNTER → 2022-02-19 08:49 | Outpatient (BNVA) | payer MEDICARE, SELFPAY | PROVIDERS: PCP Nurse Practitioner Family; Referring Provider Nurse Practitioner Family; Visit Provider Nurse Practitioner Gerontology | DX: N40.1 Benign prostatic hyperplasia with lower urinary tract symptoms (principal); N13.8 Other obstructive and reflux uropathy | CPT/HCPCS: 36415; 51798; 99213 ==

== ENCOUNTER 2022-02-19 09:30 | Outpatient (REF) | payer MEDICARE, SELFPAY ==
[2022-02-19 18:04] LABS: PSA, Screening 0.6 ng/mL (<=6.5)
== END 2022-02-19 09:31 | disposition home or self-care (01) ==
LOC: LBN 09:30
PROVIDERS: PCP Nurse Practitioner Family; Visit Provider Nurse Practitioner Gerontology
DX: N40.1 Benign prostatic hyperplasia with lower urinary tract symptoms (principal); N13.8 Other obstructive and reflux uropathy; Z12.5 Encounter for screening for malignant neoplasm of prostate; Z80.42 Family history of malignant neoplasm of prostate
CPT/HCPCS: 84153

== ENCOUNTER → 2022-05-21 08:12 | Outpatient (BNVA) | payer MEDICARE, SELFPAY | PROVIDERS: PCP Nurse Practitioner Family; Referring Provider Nurse Practitioner Family; Visit Provider Nurse Practitioner Gerontology | DX: R39.89 Other symptoms and signs involving the genitourinary system (principal); N40.1 Benign prostatic hyperplasia with lower urinary tract symptoms; N13.8 Other obstructive and reflux uropathy | CPT/HCPCS: 51798; 81003; 99213 ==

== ENCOUNTER 2022-06-30 17:06 | Outpatient (REF) | payer MEDICARE, SELFPAY ==
[2022-07-08 08:32] LABS: Fungus Smear No Fungi Seen
== END 2022-06-30 17:07 | disposition home or self-care (01) ==
LOC: NCHCN 17:06
PROVIDERS: PCP Nurse Practitioner Family; Visit Provider Nurse Practitioner Family
DX: R36.9 Urethral discharge, unspecified (principal)
CPT/HCPCS: 87102; 87206; 87070; 87205

== ENCOUNTER 2022-08-01 00:08 | Outpatient (CLI) | payer MEDICARE, SELFPAY ==
[2022-08-01 14:11] LABS: CREATININE 1.1 mg/dL (0.70-1.30); Estimated GFR 68.29 (mL/min/1.73m2)
[2022-08-01] MEDS: Normal Saline - Diluent 50 ML VIAL IJ ×2 (14:46→14:47)
[2022-08-01] MEDS: Normal Saline Flush 10 ML SYR IJ (14:46)
[2022-08-01] MEDS: Omnipaque 350 MG/ML 100 ML BTL IJ (14:47)
[2022-08-01] MEDS: Omnipaque 350 MG/ML 50 ML BTL IJ (14:48)
--- NOTE | 2022-08-01 14:50 | DI.CT_ITS ---
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 TECHNIQUE: Imaging Protocol: Axial CT angiography was performed with multi-slice acquisition and mu lti-planar and/or 3D reconstructions. CONTRAST MATERIAL: Intravenous: Omnipaque 350 Contrast volume:150 mL Oral: No COMPARISON: CT CT ABDOMEN/ PELVIS CTA from 06/02/[address] ABDOMEN/ PELVIS CTA from 08/20/2018 FINDINGS: Vascular Structures: Abdomen and pelvis: Celiac Elmer/SMA: No evidence of occlusion or significant stenosis. Renal Arteries: No evidence of occlusion or significant stenosis. There is a single renal artery perf using each kidney. Atherosclerosis at the origin. Aorta: Atherosclerosis is present. There is an endovascular stent extending into the common iliac ar teries. This was placed since the prior examination. There is a muckleshoot 4.7 cm infrarenal abdominal ao rtic aneurysm. No dissection. Iliac Arteries: No evidence of occlusion or significant stenosis. Atherosclerosis. Lower extremities: Right: Common Femoral: There is occlusion of the right common femoral artery with reconstitution of the femo ral and deep femoral arteries distally. Atherosclerosis is present. Femoral: No evidence of occlusion or significant stenosis. Atherosclerosis is present Deep Femoral Artery: No evidence of occlusion or significant stenosis. Atherosclerosis is present. Popliteal: No evidence of occlusion or significant stenosis. Knee Trifurcation: No evidence of occlusion or significant stenosis. Left: Common Femoral: There is marked stenosis of the distal common femoral artery. Femoral: There is occlusion of the femoral artery with reconstitution at the popliteal artery. Ather osclerosis is present. Deep femoral artery: No evidence of occlusion or significant stenosis. Atherosclerosis is present. Popliteal: No evidence ofocclusion or significant stenosis. Knee Trifurcation: No evidence of occlusion or significant stenosis. Soft Tissues: Lung bases: Coronary artery calcifications are present. Emphysematous changes and pulmonary fibrosis are seen in the lung bases. Liver: Normal density. There is a stable cyst in the left lobe of the liver. Gallbladder and biliary tract: Gallstones are present. There is no biliary ductal dilatation. Pancreas: Normal density, no abnormal calcifications or inflammatory process. Spleen: Normal. Kidneys: Normal size, contour and axis. Right nephrolithiasis. No hydronephrosis. There is a stable 1 cm right renal cyst. No follow-up is recommended. Adrenal glands: No masses seen. Aorta: Atherosclerosis is present. There is an endovascular stent extending into the common iliac ar teries. This was placed since the prior examination. There is a muckleshoot 4.7 cm infrarenal abdominal aortic aneurysm. Bladder: Symmetric distention, no gross wall thickening. Reproductive organs: Enlarged prostate gland. Soft tissues: Unremarkable. Bowel: No obstruction or bowel wall thickening. The appendix is unremarkable. There is a left inguin al hernia containing an unremarkable loop of sigmoid colon. There is no evidence of strangulation or obstruction. Peritoneal cavity: No ascites, collection or mesenteric inflammatory response. No free air. Bones: Within normal limits for the patient's age. Postsurgical changes are seen in the lumbosacral spine. IMPRESSION: 1. 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 2. Occlusion of the distal left common femoral artery in the left femoral artery with reconstitution at the level of the popliteal artery. 3. No acute abdominal or pelvic process. RADIATION DOSE DELIVERED: 1,477.2mGy.cm Total DLP 1,477.2mGy.cm Total DLP DATA REPOSITORY: All CT scans at this facility are submitted to the National Radiology Data Registry (NRDR) Dose Index Registry (DIR) with the [employer] (ACR). RADIATION OPTIMIZATION: All CT scans at this facility use at least one of these dose optimization te chniques: automated exposure control; mA and/or kV adjustment per patient size (includes targeted exa ms where dose is matched to clinical indication); or iterative reconstruction.
== END 2022-08-01 00:28 ==
LOC: DI 00:08
PROVIDERS: PCP Nurse Practitioner Family; Visit Provider Nurse Practitioner Family
DX: I70.92 Chronic total occlusion of artery of the extremities (principal); Z00.00 Encounter for general adult medical examination without abnormal findings
CPT/HCPCS: 75635; 82565; J3490; Q9967

== ENCOUNTER 2022-09-01 13:41 | Emergency (ER) | payer MEDICARE, SELFPAY ==
[2022-09-01 13:46] VITALS: BP 154/68; PULSE 78; RESP 16; TEMP 36.9; O2SAT 99
--- NOTE | 2022-09-01 14:00 | DI.RAD_ITS ---
Exam(s) XR ACROMIO CLAVICULAR JOINTS EXAM: XR ACROMIO CLAVICULAR JOINTS CLINICAL HISTORY: fall, pain R. TECHNIQUE: 2D digital imaging was performed. COMPARISON: CR XR SHOULDER RT COMPLETE 2+V from 09/01/2022 FINDINGS: 3 views There degenerative changes in the right AC joint, more so than on the left side. There is calcificat ion in the superior capsule of the right AC joint; there is none on the left side. However, there is subacromial soft tissue calcification on the left side, more prominent on the right-sided cysts with calcific rotator cuff tendinitis. Loose bodies are also noted in the inferior recess region of the left glenohumeral joint. There is, however, no significant narrowing of the glenohumeral joints. No clavicle fractures. No a djacent rib fractures. IMPRESSION: Degenerative changes in both AC joints but without acute AC joint separation. Soft tissue calcifications bilaterally, consistent with bilateral rotator cuff tendinitis. No clavicle fractures. DATA REPOSITORY: RADIATION DOSE DELIVERED:
--- NOTE | 2022-09-01 14:00 | DI.RAD_ITS ---
Exam(s) XR SHOULDER RT COMPLETE 2+V EXAM: XR SHOULDER RT COMPLETE 2+V CLINICAL HISTORY: fall, pain. TECHNIQUE: 2D digital imaging was performed. COMPARISON: CR XR RIBS RT W PA LAT CHEST from 05/19/2019 FINDINGS: 3 views There are no fracture lines. There are few small calcific densities in the lateral subacromial space extending to the level just above the greater tuberosity. Probably related to calcific rotator cuff tendinitis as opposed to fracture fragments. There is significant degenerative change in AC joint, unchanged from 05/19/2019, including downgoing osteophytes on the clavicular side of the joint. No clavicle fracture evident. Mild degenerative changes in the glenohumeral joint also evident. IMPRESSION: Multiple small soft tissue calcifications above the greater tuberosity, most probably consistent with calcific rotator cuff tendinitis. Some degenerative changes are evident in the AC joint and glenohumeral joint. DATA REPOSITORY: RADIATION DOSE DELIVERED:
--- NOTE | 2022-09-01 14:52 | W.ED.GENAD ---
Discharge Plan Disposition Patient Disposition: Home Condition: Good Discharge Details Clinical Impression: Right shoulder strain Primary Care Provider: Lucila Flanagan ED Provider: Elvia Lee Home Meds and New Rx's Prescriptions: Continued albuterol sulfate [Ventolin HFA] 90 mcg/actuation HFA aerosol inhaler 1 - 2 puff IH Q6H PRN Patient Comments: does not use atorvastatin 80 mg tablet 80 mg PO DAILY tamsulosin [Flomax] 0.4 mg capsule 0.4 mg PO DAILY Qty: 30 11RF ketoconazole 2 % cream 1 applic topical DAILY glipizide 10 MG tablet 10 mg PO DAILY finasteride 5 MG tablet 5 mg PO DAILY metformin [Glucophage] 1,000 mg tablet 1,000 mg PO BID lisinopril 5 MG tablet 10 mg PO DAILY AM pantoprazole [Protonix] 20 MG tablet,delayed release (DR/EC) 20 mg PO DAILY AM aspirin [Aspir-81] 81 mg Tablet,Delayed Release (Dr/Ec) 81 mg PO DAILY ibuprofen 600 mg tablet 600 mg PO Q6H PRN (Reason: fever or pain) Qty: 20 0RF Discharge Instructions Instructions: Shoulder Sprain (ED) Additional Instructions: Ice 20 minutes on and 20 minutes off for the next 48 hours. You can then change to heat 20 minutes on and 20 minutes off. Ibuprofen 600 mg every 6 hours as needed for pain. You can alternate this with Tylenol 650 mg every 6 hours as needed for pain. Recheck with your primary care doc if no better in a week. Medical Decision Making Patient declined pain medication or ice in the ED but promises to use this at home. If his shoulder is not better in a week he will see his PCP for an additional work-up. Medical Records Medical records reviewed: Yes I reviewed the patient's medical records. Medical records narrative: No anticoagulant medication Imaging Data Radiologic Study: Attestation: I personally reviewed and interpreted this imaging study as follows: (Patient's right shoulder and AC joint x-rays were reviewed by me, no fracture seen, no AC separation) Radiologist's impression: Chronic changes HPI General Date/Time Provider Initiated Documentation: 09/01/22 13:59. HPI Narrative: This 77-year-old male patient presents with a chief complaint of right shoulder and arm pain after tripping over his dog's leash several days ago. Patient states he landed on his right shoulder. He did not hit his head and did not lose consciousness. He denies head, neck, chest, belly, or pelvic pain. He has no other trauma. There is no numbness or weakness distally. The pain seems mostly in his right shoulder but it radiates up a little bit toward his neck and down into his forearm. His friend brought his shoulder and/or elbow or dislocated and thought he should come to the ED. He is moving that extremity without difficulty. Related Data Home Medications Medication Instructions Recorded Confirmed finasteride 5 mg tablet 5 mg PO DAILY 05/17/14 09/01/22 glipizide 10 mg tablet 10 mg PO DAILY 05/17/14 09/01/22 lisinopril 5 mg tablet 10 mg PO DAILY AM 03/16/17 09/01/22 pantoprazole 20 mg tablet,delayed 20 mg PO DAILY AM 03/16/17 09/01/22 release (Protonix) albuterol sulfate 90 mcg/actuation 1 - 2 puff inhalation Q6H PRN 03/10/18 05/19/19 aerosol inhaler (Ventolin HFA) atorvastatin 80 mg tablet 80 mg PO DAILY 03/10/18 09/01/22 metformin 1,000 mg tablet 1,000 mg PO BID 03/10/18 09/01/22 (Glucophage) aspirin 81 mg tablet,delayed 81 mg PO DAILY 05/19/19 09/01/22 release (Aspir-) ibuprofen 600 mg tablet 600 mg PO Q6H PRN fever or pain 05/19/19 09/01/22 #20 tabs ketoconazole 2 % topical cream 1 applic topical DAILY 11/20/21 09/01/22 tamsulosin 0.4 mg capsule (Flomax) 0.4 mg PO DAILY #30 caps 02/19/22 09/01/22 Previous Rx's Medication Instructions Recorded ibuprofen 600 mg tablet 600 mg PO Q6H PRN fever or pain 05/19/19 #20 tabs tamsulosin 0.4 mg capsule (Flomax) 0.4 mg PO DAILY #30 caps 02/19/22 Allergies Allergy/AdvReac Type Severity Reaction Status Date / Time No Known Drug Allergies Allergy Unverified 09/01/22 13:49 General Stated Complaint: Orthopedic SARA: 4 Review of Systems Constitutional Constitutional: Denies chills, Denies fever(s), Denies headache(s) and Denies weakness Eyes Eyes: Denies diplopia and Reports other (no redness) ENT Ears, Nose, Mouth, and Throat: Denies otalgia, Denies headache(s), Denies nasal congestion, Denies nasal discharge, Reports neck pain and Denies sore throat Cardiovascular Cardiovascular: Denies chest pain, Denies palpitations and Denies dyspnea Respiratory Respiratory: Denies cough and Denies dyspnea Gastrointestinal Gastrointestinal: Denies abdominal pain, Denies diarrhea, Denies nausea and Denies vomiting Genitourinary Genitourinary: Denies difficulty urinating and Denies dysuria Musculoskeletal Musculoskeletal: Denies myalgias, Denies joint swelling, Denies limited range of motion, Denies muscle weakness, Reports neck pain, Denies numbness and Reports other (no edema) Integumentary/Breasts Skin/Breast: Denies change in pigmentation and Denies rash Neurologic Neurologic: Denies headache(s), Denies numbness and Denies weakness Endocrine Endocrine: Denies palpitations PFSH All Active Problems Right shoulder strain (Acute) BPH loc w urin obs/LUTS (Acute) Essential hypertension (Acute) Diabetes mellitus (Chronic) Rash (Acute) Peripheral arterial occlusive disease (Acute) Callus of toe (Acute) Family history of stress (Acute) Dysuria (Acute) Urinary disorder (Acute) Lumbar radiculitis (Acute) Medical History AAA (abdominal aortic aneurysm) Abscess of prostate 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 Father No problems noted. Social History Smoking/Tobacco Use Status: Former Tobacco Use Quit Date: 07/24/21 Smoking risk assessment performed?: Yes Alcohol Intake: never Drug use: Never Substance use type: does not use Housing: apartment What is your relationship status?: living with partner Panel score (0-1 are the most socially isolated patients): 1 Mena/Jew: jewish Seatbelt use: always Helmet use: Yes Working smoke detector in home: Yes Fire extinguisher in home: Yes Carbon monox detector in home: Yes Firearms in home: Yes Do you feel safe at home: Yes Do you feel safe in your relationship?: Yes Exam Const General: no acute distress, well developed, well groomed and not in acute distress Nutritional Appearance: well nourished Orientation: alert and oriented x3 HENMT Head: normocephalic and atraumatic Ears: external ears normal Mouth: oropharynx normal and moist mucous membranes Throat: posterior oropharynx normal Eyes Conjunctivae: conjunctivae normal Neck Neck: full ROM and supple Chest Chest: normal inspection of the chest and normal palpation of entire chest wall Resp Effort & Inspection: normal respiratory effort Auscultation: clear to auscultation bilaterally Cardio Rate: regular rate Rhythm: regular rhythm Heart Sounds: no murmurs and no rubs GI Inspection: normal to inspection Palpation: soft, nontender and other (non distended) Auscultation: normal bowel sounds Back/Spine/Pelvis Back: no CVA tenderness Cervical Spine: No cervical spinal tenderness Thoracic/Lumbar Spine: thoracic and lumbar spine normal to inspection, No thoracic spinal tenderness and No lumbar spinal tenderness Pelvis: no pain with anterior-posterior compression and no pain with lateral compression Skin General skin exam: no rashes or lesions noted and other (pink, warm, dry; AT) Neuro General: patient alert, patient awake and patient oriented x3 Speech: speech normal Motor: other (RICK) Sensory Exam: no sensory deficits noted Extrem General: normal to inspection, full ROM and pedal edema present Right upper extremity: normal to inspection (strength 5/5 all mm grps), full ROM, normal capillary refill, shoulder/upper arm (minor AC TTP, remainder of RUE NTP, FROM, full arm abduction & decent IR B ), elbow/forearm (NTP, FROM) and hand (NVI distally, also axillary); no edema Psych Mental Status: mental status grossly normal Speech and Movement: speech and movement normal Affect: normal affect Course Vital Signs Vital signs: Vital Signs Temperature 36.9 C 09/01/22 13:46 Pulse 78 09/01/22 13:46 Respiratory Rate 16 09/01/22 13:46 Blood Pressure 154/68 H 09/01/22 13:46 Pulse Oximetry 99 09/01/22 13:46 Temperature 36.9 C 09/01/22 13:46 Temperature Source Skin 09/01/22 13:46 Pulse 78 09/01/22 13:46 Respiratory Rate 16 09/01/22 13:46 Blood Pressure 154/68 H 09/01/22 13:46 Blood Pressure Position Sitting 09/01/22 13:46 Pulse Oximetry 99 09/01/22 13:46 Oxygen Delivery Method Room Air 09/01/22 13:46 Oxygen Flow Rate 0 09/01/22 13:46 Pain Level 6 09/01/22 13:46 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
== END 2022-09-01 15:11 | disposition home or self-care (01) ==
PROVIDERS: Emergency Provider Emergency Medicine; PCP Nurse Practitioner Family
DX: S46.911A Strain of unspecified muscle, fascia and tendon at shoulder and upper arm level, right arm, initial encounter (principal); M19.011 Primary osteoarthritis, right shoulder; I10 Essential (primary) hypertension; E11.9 Type 2 diabetes mellitus without complications; Z79.82 Long term (current) use of aspirin; Z79.4 Long term (current) use of insulin; Z87.891 Personal history of nicotine dependence; W01.0XXA Fall on same level from slipping, tripping and stumbling without subsequent striking against object, initial encounter; Y93.K1 Activity, walking an animal; Y92.410 Unspecified street and highway as the place of occurrence of the external cause; Y99.9 Unspecified external cause status
CPT/HCPCS: 99283; 73030; 73050

== ENCOUNTER 2022-09-26 11:02 | Outpatient (CLI) | payer MEDICARE, SELFPAY ==
--- NOTE | 2022-09-26 11:00 | RT.EKG_ITS ---
APPROVED REPORT Exam: Resting ECG Reason for Exam: New Patient/ Cardiac Clearence Needed Patient Location: O HR:72 bpm ECG Measurements Heart Rate 72 AXIS NJ 145 P 7 QRSd 111 QRS -54 QT 377 T 86 QTc 413 Conclusion Sinus rhythm...normal P axis, V-rate 50- 99 Left anterior fascicular block Early R wave transition IVCD
== END 2022-09-26 11:03 | disposition home or self-care (01) ==
LOC: DI.CARD 11:04
PROVIDERS: PCP Nurse Practitioner Family; Referring Provider Nurse Practitioner Family; Visit Provider Internal Medicine Cardiovascular Disease
DX: I10 Essential (primary) hypertension (principal); J44.9 Chronic obstructive pulmonary disease, unspecified
CPT/HCPCS: 93010

== ENCOUNTER → 2022-09-26 11:02 | Outpatient (BNVA) | payer MEDICARE, SELFPAY | PROVIDERS: PCP Nurse Practitioner Family; Referring Provider Nurse Practitioner Family; Visit Provider Internal Medicine Cardiovascular Disease | DX: I77.9 Disorder of arteries and arterioles, unspecified (principal); I10 Essential (primary) hypertension; J44.9 Chronic obstructive pulmonary disease, unspecified; Z01.810 Encounter for preprocedural cardiovascular examination | CPT/HCPCS: 93005; 99203; 99214 ==

== ENCOUNTER 2022-09-29 00:22 | Outpatient (CLI) | payer MEDICARE, SELFPAY ==
--- NOTE | 2022-09-29 07:15 | DI.NM_ITS ---
APPROVED REPORT Exam: Pharmacologic Patient Location: Out-Patient Room/Bed: Stress Nurse: Irasema Russo RN Ordering Provider:HIRA MILAN, Contact Number: [phone] BMI: 24.90 Baseline Rhythm: Sinus Rhythm Indications: Preoperative evaluation, peripheral arterial disease. Medical History Medical History: AAA with repair, peripheral arterial occlusive disease, barretts esophagua, BPH, chr onic pain, DJD, depression, ED, HLD, spinal stenosis, severe vascular disease Cardiac Medications: Glipizide, lisinopril, protonix, ventolin, atorvastatin, aspirin, metformin, Allergies: NKDA Cardiac Risk Factors: HTN, PVD, HTN, diabetes, COPD, former smoker (quit approx 1 year ago) Previous Cardiac Procedures: AAA with repair Pretest Chest Pain Characteristics: None Exercise History: Sedentary Physical Disabilities: Legs Lung Sounds: Clear to auscultation Heart Sounds: Regular Stress Test Details Test: Pharmacologic stress testing performed using 0.4 mg of regadenoson per 5 mL given IV over 10 s econds. Reason for pharmacologic stress test: physical limitation. Nuclear Acquisition: Rest Tc-99m/Stress Tc-99m 1 day Rest Isotope: Tc-99m Sestamibi. Dose: 10.0 Date: 09/29/2022 Injection Time: 0845 Stress Isotope: Tc-99m Sestamibi. Dose: 30.0 Date: 09/29/2022 Injection Time: 1021 HR Resting HR Supine: 65 bpm Max Heart Rate (APMHR): 141.642525 bpm Resting HR Standin bpm Target HR (85% APMHR): 119.175652 bpm Max HR Achieved: 96 bpm % of APMHR: 68.09 Recovery HR: 84 bpm HR response to stress: Normal HR response to stress BP Resting BP Supine: 180/78 mmHg Resting BP Standin/78 mmHg Max BP: 180/78 mmHg Recovery BP: 152/60 mmHg ECG Resting ECG: Sinus Rhythm Ectopy: None Stress ECG: Sinus Rhythm ST Change: Nondiagnostic low heart rate Arrhythmia: Occasional PVC, Occasional PAC Recovery ECG: Sinus Rhythm Recovery ST Change: Nondiagnostic low heart rate Clinical Stress Symptoms: Mild chest pressure, moderate SOB, mild CABELLO Angina Score: Non-Limiting Rate Pressure Product: [id number] Stress ECG Conclusion 1. Resting electrocardiogram showed a nonspecific IVCD 2. Patient underwent testing using pharmacologic stress with regadenoson 3. Peak heart rate achieved was 68% of maximal predicted for age 4. The electrocardiographic portion of the test was nondiagnostic 5. See MPI report Stress Test Summary STAGE HR BP SpO2 Symptoms NOTES Supine 65 180/78 96 1 min post Lexiscan injection 65 174/78 97 Mild chest pressure, moderate SOB, mild CABELLO 3 min post Lexiscan injection 90 152/64 98 6 min post Lexiscan injection 84 152/60 98 All symptoms resolved MPI Conclusion Myocardial perfusion is normal. There is no ischemia or evidence of prior infarction EF is 54% with normal wall motion Radiologist Interpretation Radiologist agrees with Mems Process Engineer's Interpretation. Radiologist Interpretation by: Ankita Reynolds MD Interpretation Date/Time: 09/29/2022 16:09:18
[2022-09-29] MEDS: Regadenoson 0.4 MG/5 ML SYR IVP (10:29)
== END 2022-09-29 00:42 ==
LOC: DI 00:22
PROVIDERS: PCP Nurse Practitioner Family; Visit Provider Internal Medicine Cardiovascular Disease
DX: Z01.810 Encounter for preprocedural cardiovascular examination (principal)
CPT/HCPCS: 78452; 93016; 93018; 93017; J2785

== ENCOUNTER 2022-11-14 17:38 | Emergency (ER) | payer MEDICARE, SELFPAY ==
[2022-11-14 17:59] VITALS: BP 159/65; PULSE 80; RESP 18; TEMP 36.4; O2SAT 98
--- NOTE | 2022-11-14 18:30 | RT.EKG_ITS ---
APPROVED REPORT Exam: Resting ECG Reason for Exam: hypomag Patient Location: E HR:76 bpm ECG Measurements Heart Rate 76 AXIS AL 140 P 59 QRSd 105 QRS -51 QT 368 T 83 QTc 415 Conclusion Sinus rhythm...normal P axis, V-rate 60- 99 Left anterior fascicular block...axis(240,-40), init forces inf Probable LVH with secondary repol abnrm...multiple LVH criteria Physician: no stemi
[2022-11-14 19:30] LABS: Abs Immature Grans 0.04 10^3/uL (0.0-0.06); Absolute Basophil Count 0.03 10^3/uL (0.0-0.2); Absolute Eosinophil Count 0.24 10^3/uL (0.0-0.7); Absolute Lymphocyte Count 2.22 10^3/uL (1.2-3.4); Absolute Monocyte Count 0.68 10^3/uL (0.1-0.8); Absolute Neutrophil Count 4.18 10^3/uL (1.2-6.7); Basophils % 0.4; Eosinophils % 3.2; HCT 38.9 % (40.0-50.0); HGB 13.1 g/dL (13.5-17.5); Immature Grans % 0.5; MCH 29.6 pg (27.0-33.0); MCHC 33.7 % (32.0-36.0); MCV 88 fL (80-95); MPV 9.2 fL (8.0-11.0); Monocytes % 9.2; Neutrophils % 56.7; Platelet Count 225 10^3/uL (130-400); RBC 4.42 10^6/uL (4.36-5.78); RDW 14.3 % (11.8-14.1); RDW-SD 46.5 fL; WBC 7.39 10^3/uL (4.4-10.8)
[2022-11-14 19:54] LABS: ALT 18 U/L (16-63); AST 11 U/L (15-37); Albumin 3.6 g/dL (3.4-5.0); Alkaline Phosphatase 93 U/L (46-116); Anion Gap 14.3 mmol/L (3-11); BUN 18 mg/dL (7-18); Bilirubin, Total 0.4 mg/dL (0.2-1.0); CO2 23.7 mmol/L (21.0-32.0); Calcium 8.8 mg/dL (8.5-10.1); Chloride 103 mmol/L (98-107); Estimated GFR 76.56 (mL/min/1.73m2); Glucose 155 mg/dL (74-106); Potassium 3.2 mmol/L (3.5-5.1); Sodium 141 mmol/L (136-145); Total Protein 6.9 g/dL (6.4-8.2)
[2022-11-14 19:58] LABS: Magnesium 0.4 mg/dL (1.8-2.4)
--- NOTE | 2022-11-14 20:35 | ED.GENADUL_ITS ---
Discharge Plan Disposition Patient Disposition: Home Condition: Good Discharge Details Clinical Impression: Hypomagnesemia Primary Care Provider: Lucila Flanagan ED Provider: Yamileth Reilly Home Meds and New Rx's Prescriptions: New magnesium 250 mg tablet 500 mg PO BID Qty: 90 0RF No Action albuterol sulfate [Ventolin HFA] 90 mcg/actuation HFA aerosol inhaler 1 - 2 puff IH Q6H PRN Patient Comments: does not use atorvastatin 80 mg tablet 80 mg PO DAILY tamsulosin [Flomax] 0.4 mg capsule 0.4 mg PO DAILY Qty: 30 11RF ketoconazole 2 % cream 1 applic topical DAILY glipizide 10 MG tablet 10 mg PO DAILY finasteride 5 MG tablet 5 mg PO DAILY metformin [Glucophage] 1,000 mg tablet 1,000 mg PO BID lisinopril 5 MG tablet 10 mg PO DAILY AM pantoprazole [Protonix] 20 MG tablet,delayed release (DR/EC) 20 mg PO DAILY AM aspirin [Aspir-81] 81 mg Tablet,Delayed Release (Dr/Ec) 81 mg PO DAILY ibuprofen 600 mg tablet 600 mg PO Q6H PRN (Reason: fever or pain) Qty: 20 0RF clopidogrel [Plavix] 75 mg Tablet 75 mg PO DAILY Xarelto 2.5 mg Tablet 2.5 mg PO DAILY Discharge Instructions Instructions: Hypomagnesemia (ED) Additional Instructions: Take the magnesium you were prescribed twice a day. Call your primary care doctor tomorrow to schedule an appointment for early next week to follow up on your visit today. Return to the emergency department for new or worsening symptoms including chest pain, shortness of breath, weakness, palpitations, or if you have any other concerns. Medical Decision Making 77yo male with hx of DM, HTN, PAD, recent vascular surgery, presenting for hypomagnesium found on routine outpatient follow up labs. Advised to start magnesium supplementation at home but states he was not able to get to pharmacy. Feels entirely well and in his usual state of health. EKG NSR, appropriate intervals with no QT prolongation or concerning T wave changes compared to priors. Labs reviewed as below, CBC reassuring, CMP with Mg of 0.4 and K of 3.2. Oral replacement of both given in the ED and prescription for Mg sent to pharmacy which is open tomorrow. With no EKG changes and no symptoms, appro priate for outpatient treatment and further workup for etiology of hypomagnesium. Discharged home; discharge instructions including return precautions were reviewed with patient who verbalized understanding. All questions were answered and they are in full agreement with the plan. Lab Data Lab results reviewed: Yes I reviewed the patient's lab results. Labs: Laboratory Tests Range/Units 11/14/22 11/14/22 19:20 19:20 WBC (4.4-10.8) 10^3/uL 7.39 RBC (4.36-5.78) 10^6/uL 4.42 Hgb (13.5-17.5) g/dL 13.1 L Hct (40.0-50.0) % 38.9 L MCV (80-95) fL 88 MCH (27.0-33.0) pg 29.6 MCHC (32.0-36.0) % 33.7 RDW (11.8-14.1) % 14.3 H Plt Count (130-400) 10^3/uL 225 MPV (8.0-11.0) fL 9.2 Immature Gran % 0.5 Neutrophils % 56.7 Lymphocytes % 30.0 Monocytes % 9.2 Eosinophils % 3.2 Basophils % 0.4 Nucleated RBC % (0.0-0.3) % 0.0 Absolute Neutrophils (1.2-6.7) 10^3/uL 4.18 Absolute Lymphocytes (1.2-3.4) 10^3/uL 2.22 Absolute Monocytes (0.1-0.8) 10^3/uL 0.68 Absolute Eosinophils (0.0-0.7) 10^3/uL 0.24 Absolute Basophils (0.0-0.2) 10^3/uL 0.03 Sodium (136-145) mmol/L 141 Potassium (3.5-5.1) mmol/L 3.2 L Chloride (98-107) mmol/L 103 Carbon Dioxide (21.0-32.0) mmol/L 23.7 Anion Gap (3-11) mmol/L 14.3 H BUN (7-18) mg/dL 18 Creatinine (0.70-1.30) mg/dL 1.0 Est GFR (CKD-EPI 2020) (mL/min/1.73m2) 76.56 Glucose (74-106) mg/dL 155 H Calcium (8.5-10.1) mg/dL 8.8 Magnesium (1.8-2.4) mg/dL 0.4 L* Total Bilirubin (0.2-1.0) mg/dL 0.4 AST (15-37) U/L 11 L ALT (16-63) U/L 18 Alkaline Phosphatase (46-116) U/L 93 Total Protein (6.4-8.2) g/dL 6.9 Albumin (3.4-5.0) g/dL 3.6 HPI General Mode of arrival: ambulatory . Date/Time Provider Initiated Documentation: 11/14/22 17:41 . Limitations to Documentation: no limitations . Information obtained by: patient . HPI Narrative: 77yo male with hx of DM, HTN, PAD, recent vascular surgery, presenting for hypomagnesium found on routine outpatient follow up labs. Patient was advised to start magnesium supplementation at home but states he was not able to get to [facility] to get prescription and that when he told his doctor this he was instructed to present to the emergency department. He feels entirely well and in his usual state of health. No chest pain, palpitations, shortness of breath, generalized weakness, focal weakness, diarrhea, vomiting, recent illness, numbness, tingling, weakness, or other concerns. Related Data Home Medications Medication Instructions Recorded Confirmed finasteride 5 mg tablet 5 mg PO DAILY 05/17/14 11/14/22 glipizide 10 mg tablet 10 mg PO DAILY 05/17/14 11/14/22 lisinopril 5 mg tablet 10 mg PO DAILY AM 03/16/17 11/14/22 pantoprazole 20 mg tablet,delayed 20 mg PO DAILY AM 03/16/17 11/14/22 release (Protonix) albuterol sulfate 90 mcg/actuation 1 - 2 puff inhalation Q6H PRN 03/10/18 11/14/22 aerosol inhaler (Ventolin HFA) atorvastatin 80 mg tablet 80 mg PO DAILY 03/10/18 11/14/22 metformin 1,000 mg tablet 1,000 mg PO BID 03/10/18 11/14/22 (Glucophage) aspirin 81 mg tablet,delayed 81 mg PO DAILY 05/19/19 11/14/22 release (Aspir-) ibuprofen 600 mg tablet 600 mg PO Q6H PRN fever or pain 05/19/19 09/26/22 #20 tabs ketoconazole 2 % topical cream 1 applic topical DAILY 11/20/21 11/14/22 tamsulosin 0.4 mg capsule (Flomax) 0.4 mg PO DAILY #30 caps 02/19/22 11/14/22 clopidogrel 75 mg tablet (Plavix) 75 mg PO DAILY 11/14/22 11/14/22 magnesium 250 mg tablet 500 mg PO BID #90 tabs 11/14/22 rivaroxaban 2.5 mg tablet (Xarelto) 2.5 mg PO DAILY 11/14/22 11/14/22 Previous Rx's Medication Instructions Recorded ibuprofen 600 mg tablet 600 mg PO Q6H PRN fever or pain 05/19/19 #20 tabs tamsulosin 0.4 mg capsule (Flomax) 0.4 mg PO DAILY #30 caps 02/19/22 magnesium 250 mg tablet 500 mg PO BID #90 tabs 11/14/22 Allergies Allergy/AdvReac Type Severity Reaction Status Date / Time No Known Drug Allergies Allergy Unverified 11/14/22 18:02 General Stated Complaint: GenMedical SARA: 3 Review of Systems Narrative: see HPI PFSH All Active Problems (Updated 11/14/22 @ 20:43 by Yamileth Reilly MD) Hypomagnesemia (Acute) BPH loc w urin obs/LUTS (Acute) Essential hypertension (Acute) Diabetes mellitus (Chronic) Rash (Acute) Peripheral arterial occlusive disease (Acute) Callus of toe (Acute) Family history of stress (Acute) Dysuria (Acute) Urinary disorder (Acute) Lumbar radiculitis (Acute) Medical History (Updated 11/14/22 @ 20:43 by Yamileth Reilly MD) AAA (abdominal aortic aneurysm) Abscess of prostate 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 Father No problems noted. Social History Smoking/Tobacco Use Status: Former Tobacco Use Quit Date: 07/24/21 Smoking risk assessment performed?: Yes Alcohol Intake: never Drug use: Never Substance use type: does not use Housing: apartment What is your relationship status?: living with partner Panel score (0-1 are the most socially isolated patients): 1 Mena/Muslim: evangelical Seatbelt use: always Helmet use: Yes Working smoke detector in home: Yes Fire extinguisher in home: Yes Carbon monox detector in home: Yes Firearms in home: Yes Do you feel safe at home: Yes Do you feel safe in your relationship?: Yes Exam Narrative Exam Narrative: General: Alert, well appearing, well nourished, in no acute distress. Head: Normocephalic, atraumatic Neck: Trachea midline, Neck supple. ENT: MMM. No oropharygeal lesions or exudate. Cardiac: RRR, no murmurs appreciated Resp: No respiratory distress. CTAB. Abd: Soft, non-distended, nontender : No suprapubic tenderness. No CVA tenderness. Extremities: No deformities. No peripheral edema. Neurologic: GCS 15. Moves all extremities freely against gravity. 1+ patellar reflex bilaterally. Course Vital Signs Vital signs: Vital Signs Temperature 36.4 C L 11/14/22 17:59 Pulse 80 11/14/22 17:59 Respiratory Rate 18 11/14/22 17:59 Blood Pressure 159/65 H 11/14/22 17:59 Pulse Oximetry 98 11/14/22 17:59 Temperature 36.4 C L 11/14/22 17:59 Temperature Source Skin 11/14/22 17:59 Pulse 80 11/14/22 17:59 Respiratory Rate 18 11/14/22 17:59 Respiratory Effort Normal 11/14/22 20:03 Respiratory Depth Normal 11/14/22 20:03 Respiratory Pattern Normal 11/14/22 20:03 Blood Pressure 159/65 H 11/14/22 17:59 Blood Pressure Position Sitting 11/14/22 17:59 Pulse Oximetry 98 11/14/22 17:59 Oxygen Delivery Method Room Air 11/14/22 17:59 Oxygen Flow Rate 0 11/14/22 17:59 Pain Level 5 11/14/22 17:59 Lab/Test Results Lab/Test Results: Laboratory Tests Range/Units 11/14/22 11/14/22 19:20 19:20 WBC (4.4-10.8) 10^3/uL 7.39 RBC (4.36-5.78) 10^6/uL 4.42 Hgb (13.5-17.5) g/dL 13.1 L Hct (40.0-50.0) % 38.9 L MCV (80-95) fL 88 MCH (27.0-33.0) pg 29.6 MCHC (32.0-36.0) % 33.7 RDW (11.8-14.1) % 14.3 H Plt Count (130-400) 10^3/uL 225 MPV (8.0-11.0) fL 9.2 Immature Gran % 0.5 Neutrophils % 56.7 Lymphocytes % 30.0 Monocytes % 9.2 Eosinophils % 3.2 Basophils % 0.4 Nucleated RBC % (0.0-0.3) % 0.0 Absolute Neutrophils (1.2-6.7) 10^3/uL 4.18 Absolute Lymphocytes (1.2-3.4) 10^3/uL 2.22 Absolute Monocytes (0.1-0.8) 10^3/uL 0.68 Absolute Eosinophils (0.0-0.7) 10^3/uL 0.24 Absolute Basophils (0.0-0.2) 10^3/uL 0.03 Sodium (136-145) mmol/L 141 Potassium (3.5-5.1) mmol/L 3.2 L Chloride (98-107) mmol/L 103 Carbon Dioxide (21.0-32.0) mmol/L 23.7 Anion Gap (3-11) mmol/L 14.3 H BUN (7-18) mg/dL 18 Creatinine (0.70-1.30) mg/dL 1.0 Est GFR (CKD-EPI 2020) (mL/min/1.73m2) 76.56 Glucose (74-106) mg/dL 155 H Calcium (8.5-10.1) mg/dL 8.8 Magnesium (1.8-2.4) mg/dL 0.4 L* Total Bilirubin (0.2-1.0) mg/dL 0.4 AST (15-37) U/L 11 L ALT (16-63) U/L 18 Alkaline Phosphatase (46-116) U/L 93 Total Protein (6.4-8.2) g/dL 6.9 Albumin (3.4-5.0) g/dL 3.6
[2022-11-14] MEDS: Potassium Chloride 20 MEQ TABCR 40 MEQ PO (20:39)
[2022-11-14 20:53] VITALS: BP 159/81; PULSE 75; RESP 16; O2SAT 98
[2022-11-14] MEDS: Magnesium Gluconate 500 MG TAB 1000 MG PO (20:53)
--- NOTE | 2022-11-15 12:14 | NUR.NOTE ---
in chart to check status of ekg Nursing Note:
== END 2022-11-14 20:54 | disposition home or self-care (01) ==
PROVIDERS: Emergency Provider Student in an Organized Health Care Education/Training Program; PCP Nurse Practitioner Family
DX: E83.52 Hypercalcemia (principal); I44.4 Left anterior fascicular block; E11.9 Type 2 diabetes mellitus without complications; I10 Essential (primary) hypertension; I73.9 Peripheral vascular disease, unspecified; Z79.84 Long term (current) use of oral hypoglycemic drugs; Z79.899 Other long term (current) drug therapy; Z87.891 Personal history of nicotine dependence
CPT/HCPCS: 80053; 93005; 99283; 83735; 85025; 93010

== ENCOUNTER 2022-11-14 21:02 | Outpatient (REF) | payer MEDICARE, SELFPAY ==
[2022-11-14 15:54] LABS: HCT 41.7 % (40.0-50.0); HGB 14.2 g/dL (13.5-17.5); MCH 30.1 pg (27.0-33.0); MCHC 34.1 % (32.0-36.0); MCV 89 fL (80-95); Platelet Count 243 10^3/uL (130-400); RBC 4.71 10^6/uL (4.36-5.78); RDW 14.2 % (11.8-14.1); RDW-SD 45.7 fL; WBC 6.15 10^3/uL (4.4-10.8)
[2022-11-14 16:29] LABS: Vitamin D 25 Total 37.8 ng/mL (30-100)
[2022-11-14 16:37] LABS: Hemoglobin A1C 6.7 % (<5.7)
[2022-11-14 16:43] LABS: ALT 23 U/L (16-63); AST 15 U/L (15-37); Albumin 3.7 g/dL (3.4-5.0); Alkaline Phosphatase 87 U/L (46-116); Anion Gap 13.3 mmol/L (3-11); BUN 17 mg/dL (7-18); Bilirubin, Total 0.6 mg/dL (0.2-1.0); CO2 24.7 mmol/L (21.0-32.0); Chloride 101 mmol/L (98-107); Estimated GFR 76.56 (mL/min/1.73m2); Glucose 156 mg/dL (74-106); Potassium 3.4 mmol/L (3.5-5.1); Sodium 139 mmol/L (136-145); Total Protein 6.7 g/dL (6.4-8.2); Vitamin B12 214 pg/mL (193-986)
[2022-11-14 17:02] LABS: Magnesium 0.4 mg/dL (1.8-2.4)
== END 2022-11-14 21:03 | disposition home or self-care (01) ==
LOC: NCHCN 21:02
PROVIDERS: PCP Nurse Practitioner Family; Visit Provider Nurse Practitioner Family
DX: E11.40 Type 2 diabetes mellitus with diabetic neuropathy, unspecified (principal); M79.2 Neuralgia and neuritis, unspecified; E78.5 Hyperlipidemia, unspecified; I73.9 Peripheral vascular disease, unspecified
CPT/HCPCS: 80053; 82306; 85027; 82607; 83036; 83735

== ENCOUNTER 2022-11-18 03:08 | Outpatient (CLI) | payer MEDICARE, SELFPAY ==
[2022-11-18] MEDS: Levalbuterol HFA 15 GM INH 4 PUFF IH (14:21)
[2022-11-18] MEDS: Inhaler, Assist Device 1 EACH MC (14:22)
--- NOTE | 2022-11-22 10:42 | W.PFT ---
Date of service: 11/18/22 Time of Service: 12:58 Pulmonary Function Test Result Indications: COPD Interpretation Spirometry: Although the FEV1/FVC ratio is technically normal, the volume time curve and flow volume loop demonstrate likely mild obstruction. No significant bronchodilator response. Lung Volumes: Normal lung volumes Diffusion Capacity: Decreased diffusion Airway Pressure: Normal airways resistance Impression Likely mild airflow obstruction with a decreased diffusion. 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 Clinical Correlation therefore is recommended.
== END 2022-11-18 03:09 | disposition home or self-care (01) ==
LOC: RT 03:08
PROVIDERS: PCP Nurse Practitioner Family; Visit Provider Nurse Practitioner Family
DX: J44.9 Chronic obstructive pulmonary disease, unspecified (principal)
CPT/HCPCS: 94060; 94726; 94729

== ENCOUNTER 2022-11-19 10:38 | Outpatient (CLI) | payer MEDICARE, SELFPAY ==
[2022-11-19 10:19] LABS: Anion Gap 11.1 mmol/L (3-11); BUN 14 mg/dL (7-18); CO2 25.9 mmol/L (21.0-32.0); Calcium 8.5 mg/dL (8.5-10.1); Chloride 102 mmol/L (98-107); Estimated GFR 76.56 (mL/min/1.73m2); Glucose 199 mg/dL (74-106); Potassium 3.2 mmol/L (3.5-5.1); Sodium 139 mmol/L (136-145)
[2022-11-19 10:38] LABS: Magnesium 0.6 mg/dL (1.8-2.4)
[2022-11-21 08:39] LABS: Homocysteine 11.2 umol/L (5.0-13.9)
[2022-11-24 09:14] LABS: Methylmalonic Acid 0.23 nmol/mL (<=0.40)
== END 2022-11-19 10:39 | disposition home or self-care (01) ==
LOC: LBO 10:39
PROVIDERS: PCP Nurse Practitioner Family; Visit Provider Nurse Practitioner Family
DX: E83.42 Hypomagnesemia (principal); E87.6 Hypokalemia; M79.2 Neuralgia and neuritis, unspecified
CPT/HCPCS: 36415; 80048; 80186; 83090; 83735

== ENCOUNTER 2022-11-24 16:15 | Outpatient (REF) | payer MEDICARE, SELFPAY ==
[2022-11-24 16:48] LABS: Anion Gap 9.8 mmol/L (3-11); BUN 17 mg/dL (7-18); CO2 25.2 mmol/L (21.0-32.0); Calcium 9.4 mg/dL (8.5-10.1); Chloride 102 mmol/L (98-107); Estimated GFR 76.56 (mL/min/1.73m2); Glucose 183 mg/dL (74-106); Magnesium 1.4 mg/dL (1.8-2.4); Potassium 4.3 mmol/L (3.5-5.1); Sodium 137 mmol/L (136-145)
== END 2022-11-24 16:16 | disposition home or self-care (01) ==
LOC: NCHCN 16:15
PROVIDERS: PCP Nurse Practitioner Family; Visit Provider Physician Assistant Medical
DX: E83.42 Hypomagnesemia (principal); E87.6 Hypokalemia; I10 Essential (primary) hypertension; E11.9 Type 2 diabetes mellitus without complications
CPT/HCPCS: 80048; 83735

== ENCOUNTER → 2022-12-03 13:32 | Outpatient (BNVA) | payer MEDICARE, SELFPAY | PROVIDERS: PCP Nurse Practitioner Family; Referring Provider Nurse Practitioner Family; Visit Provider Physician Assistant Surgical | DX: R06.02 Shortness of breath (principal); R06.09 Other forms of dyspnea; Z87.891 Personal history of nicotine dependence | CPT/HCPCS: 94618; 94664; 99205; 99215 ==

== ENCOUNTER 2022-12-10 09:10 | Outpatient (REF) | payer MEDICARE, SELFPAY ==
[2022-12-10 15:32] LABS: Magnesium 1.5 mg/dL (1.8-2.4)
== END 2022-12-10 09:11 | disposition home or self-care (01) ==
LOC: NCHCN 09:10
PROVIDERS: PCP Nurse Practitioner Family; Visit Provider Physician Assistant Medical
DX: E83.42 Hypomagnesemia (principal)
CPT/HCPCS: 83735

== ENCOUNTER → 2022-12-19 00:46 | Outpatient (CLI) | payer MEDICARE, SELFPAY ==
--- NOTE | 2022-12-19 08:00 | DI.CT_ITS ---
Exam(s) CT CHEST PE CTA EXAM: CT CHEST PE CTA CLINICAL HISTORY: low DLCO and SOB,dyspnea on exertion,r06.09,r06.02. TECHNIQUE: Imaging Protocol: Axial CT angiography was performed with multi-slice acquisition and mu lti-planar reconstructions as well as axial, coronal and sagittal MIP reconstructions. CONTRAST MATERIAL: Intravenous: Omnipaque 350 Contrast volume:100 ml COMPARISON: CT CT ABDOMEN/ PELVIS CTA from 08/20/2018 CR XR RIBS RT W PA LAT CHEST from 05/19/[address] ABD AORTA CTA W RUNOFF from 08/01/2022 CT,NM,TMT NM MPI REST STRESS GRP from 09/29/2022 FINDINGS: Pulmonary Arteries: No evidence of filling defect to suggest pulmonary emboli. Tracheobronchial tree: Patent where visualized. Mediastinum and Mona: No dominant adenopathy or fluid collection. Pulmonary parenchyma: Moderate emphysematous changes. Some honeycombing noted near the lung bases. 1.8 centimeter diameter masslike density in the posterior right lower lobe. No additional suspicio us nodules. Scattered calcified granulomas. Pleura: No effusion or pneumothorax. Heart: The heart is not dilated. Severe coronary artery calcifications are seen. Aorta: Thoracic aorta non-dilated. No aneurysm. No dissection. Moderate to severe calcification. Upper abdomen: Unremarkable stable cyst left lobe of the liver. Bones: Degenerative changes with flowing osteophytes. Tubes, Catheters, and Lines: None IMPRESSION: No evidence of pulmonary embolism. 18 millimeter masslike density posterior right lower lobe. PET/CT or biopsy recommended for further evaluation. If there is high suspicion for infection, follow-up chest CT could be performed in Thu. RADIATION DOSE DELIVERED: Total DLP DATA REPOSITORY: All CT scans at this facility are submitted to the National Radiology Data Registry (NRDR) Dose Index Registry (DIR) with the [employer] ([employer]). RADIATION OPTIMIZATION: All CT scans at this facility use at least one of these dose optimization te chniques: automated exposure control; mA and/or kV adjustment per patient size (includes targeted exa ms where dose is matched to clinical indication); or iterative reconstruction.
[2022-12-19] MEDS: Omnipaque 350 MG/ML 100 ML BTL IJ (14:17)
[2022-12-19] MEDS: Normal Saline - Diluent 50 ML VIAL IJ (14:18)
== END ==
PROVIDERS: PCP Nurse Practitioner Family; Visit Provider Physician Assistant Surgical
DX: R91.8 Other nonspecific abnormal finding of lung field (principal)
CPT/HCPCS: 71275; J3490

== ENCOUNTER 2023-01-30 16:01 | Outpatient (REF) | payer MEDICARE, SELFPAY ==
[2023-01-30 16:35] LABS: Calculated LDL 53 mg/dL (<100); Cholesterol 140 mg/dL (<200); HDL Cholesterol 49 mg/dL (40-60); Magnesium 1.3 mg/dL (1.8-2.4); Triglyceride 194 mg/dL (<150); Vitamin B12 464 pg/mL (193-986)
[2023-01-30 16:54] LABS: Hemoglobin A1C 8.6 % (<5.7)
== END 2023-01-30 16:02 | disposition home or self-care (01) ==
LOC: NCHCN 16:01
PROVIDERS: PCP Nurse Practitioner Family; Visit Provider Nurse Practitioner Family
DX: E11.40 Type 2 diabetes mellitus with diabetic neuropathy, unspecified (principal)
CPT/HCPCS: 80061; 82607; 83036; 83735

== ENCOUNTER → 2023-03-04 10:03 | Outpatient (BNVA) | payer MEDICARE, SELFPAY | PROVIDERS: PCP Nurse Practitioner Family; Referring Provider Nurse Practitioner Family; Visit Provider Student in an Organized Health Care Education/Training Program | DX: M75.101 Unspecified rotator cuff tear or rupture of right shoulder, not specified as traumatic (principal) | CPT/HCPCS: 99213 ==

== ENCOUNTER 2023-03-26 08:46 | Outpatient (REF) | payer MEDICARE, SELFPAY ==
[2023-03-26 15:48] LABS: HCT 44.6 % (40.0-50.0); HGB 14.9 g/dL (13.5-17.5); MCH 28.8 pg (27.0-33.0); MCHC 33.4 % (32.0-36.0); MCV 86 fL (80-95); Platelet Count 225 10^3/uL (130-400); RBC 5.17 10^6/uL (4.36-5.78); RDW 14.8 % (11.8-14.1); RDW-SD 46.8 fL; WBC 6.16 10^3/uL (4.4-10.8)
[2023-03-26 16:02] LABS: ALT 24 U/L (16-63); AST 18 U/L (15-37); Albumin 3.7 g/dL (3.4-5.0); Alkaline Phosphatase 119 U/L (46-116); Anion Gap 11.6 mmol/L (3-11); BUN 25 mg/dL (7-18); Bilirubin, Total 0.5 mg/dL (0.2-1.0); CO2 24.4 mmol/L (21.0-32.0); CREATININE 1.3 mg/dL (0.70-1.30); Calcium 9.8 mg/dL (8.5-10.1); Chloride 100 mmol/L (98-107); Estimated GFR 55.88 (mL/min/1.73m2); Glucose 288 mg/dL (74-106); Magnesium 1.5 mg/dL (1.8-2.4); Potassium 4.8 mmol/L (3.5-5.1); Sodium 136 mmol/L (136-145); Total Protein 7.1 g/dL (6.4-8.2)
== END 2023-03-26 08:47 | disposition home or self-care (01) ==
LOC: NCHCN 08:46
PROVIDERS: PCP Nurse Practitioner Family; Visit Provider Nurse Practitioner Family
DX: E11.21 Type 2 diabetes mellitus with diabetic nephropathy (principal)
CPT/HCPCS: 80053; 85027; 83735

== ENCOUNTER 2023-04-27 13:58 | Outpatient (REF) | payer MEDICARE, SELFPAY ==
[2023-04-27 15:39] LABS: Hemoglobin A1C 9.9 % (<5.7)
[2023-04-27 15:41] LABS: Magnesium 1.5 mg/dL (1.8-2.4)
== END 2023-04-27 13:59 | disposition home or self-care (01) ==
LOC: NCHCN 13:58
PROVIDERS: PCP Nurse Practitioner Family; Visit Provider Nurse Practitioner Family
DX: E11.40 Type 2 diabetes mellitus with diabetic neuropathy, unspecified (principal); E83.42 Hypomagnesemia
CPT/HCPCS: 83036; 83735

== ENCOUNTER → 2023-06-03 09:58 | Outpatient (BNVA) | payer MEDICARE, SELFPAY | PROVIDERS: PCP Nurse Practitioner Family; Referring Provider Nurse Practitioner Family; Visit Provider Student in an Organized Health Care Education/Training Program | DX: M75.101 Unspecified rotator cuff tear or rupture of right shoulder, not specified as traumatic (principal); M19.011 Primary osteoarthritis, right shoulder; E11.9 Type 2 diabetes mellitus without complications | CPT/HCPCS: 99213 ==

== ENCOUNTER 2023-08-03 08:15 | Outpatient (REF) | payer MEDICARE, SELFPAY ==
[2023-08-03 16:31] LABS: Magnesium 1.5 mg/dL (1.8-2.4)
[2023-08-03 16:38] LABS: Hemoglobin A1C 9.4 % (<5.7)
== END 2023-08-03 08:16 | disposition home or self-care (01) ==
LOC: NCHCN 08:15
PROVIDERS: PCP Nurse Practitioner Family; Visit Provider Nurse Practitioner Family
DX: E11.29 Type 2 diabetes mellitus with other diabetic kidney complication (principal); E83.42 Hypomagnesemia
CPT/HCPCS: 83036; 83735

== ENCOUNTER 2023-11-06 19:19 | Outpatient (REF) | payer MEDICARE, SELFPAY ==
[2023-11-06 15:38] LABS: Magnesium 1.8 mg/dL (1.8-2.4)
== END 2023-11-06 19:20 | disposition home or self-care (01) ==
LOC: NCHCN 19:19
PROVIDERS: PCP Nurse Practitioner Family; Visit Provider Nurse Practitioner Family
DX: E11.21 Type 2 diabetes mellitus with diabetic nephropathy (principal); E83.42 Hypomagnesemia
CPT/HCPCS: 83036; 83735

== ENCOUNTER 2024-02-12 12:45 | Outpatient (REF) | payer MEDICARE, SELFPAY ==
[2024-02-12 17:12] LABS: Microalb ug/mg Crea 7.6 ug/mg Cr
== END 2024-02-12 12:46 | disposition home or self-care (01) ==
LOC: NCHCN 12:45
PROVIDERS: PCP Nurse Practitioner Family; Visit Provider Nurse Practitioner Family
DX: E11.21 Type 2 diabetes mellitus with diabetic nephropathy (principal)
CPT/HCPCS: 82043; 82570

== ENCOUNTER 2024-05-20 10:17 | Outpatient (REF) | payer MEDICARE, SELFPAY ==
[2024-05-20 16:47] LABS: Hemoglobin A1C 7.5 % (<5.7)
[2024-05-20 16:56] LABS: ALT 17 U/L (16-63); AST 13 U/L (15-37); Albumin 3.5 g/dL (3.4-5.0); Alkaline Phosphatase 113 U/L (46-116); Anion Gap 8.3 mmol/L (3-11); BUN 19 mg/dL (7-18); Bilirubin, Total 0.6 mg/dL (0.2-1.0); CO2 28.7 mmol/L (21.0-32.0); CREATININE 1.3 mg/dL (0.70-1.30); Calcium 9.2 mg/dL (8.5-10.1); Chloride 103 mmol/L (98-107); Estimated GFR 55.53 (mL/min/1.73m2); Glucose 261 mg/dL (74-106); Potassium 4.6 mmol/L (3.5-5.1); Sodium 140 mmol/L (136-145); Total Protein 6.5 g/dL (6.4-8.2)
== END 2024-05-20 10:18 | disposition home or self-care (01) ==
LOC: NCHCN 10:17
PROVIDERS: PCP Nurse Practitioner Family; Visit Provider Nurse Practitioner Family
DX: E11.21 Type 2 diabetes mellitus with diabetic nephropathy (principal)
CPT/HCPCS: 80053; 83036

== ENCOUNTER 2025-02-13 15:01 | Outpatient (REF) | payer MEDICARE, SELFPAY | END 2025-02-13 15:02 | disposition home or self-care (01) | LOC: NCHCN 15:01 | PROVIDERS: PCP Nurse Practitioner Family; Visit Provider Nurse Practitioner Family | DX: L03.115 Cellulitis of right lower limb (principal) | CPT/HCPCS: 87070; 87205 ==

== ENCOUNTER → 2025-02-21 08:27 | Outpatient (CLI) | payer MEDICARE, SELFPAY ==
--- NOTE | 2025-02-21 | DI.RAD_ITS ---
Exam(s) XR TIB/FIB RT EXAM: XR TIB/FIB RT CLINICAL HISTORY: WOUND RT LOWER EXT,S81.801D,PAIN,? OSTEO. TECHNIQUE: 2D digital imaging was performed. Two views. COMPARISON: No exams were available for comparison FINDINGS: Exam is mildly limited by overlying clothing. BONES: No acute fracture is present. No bony destructive lesion is seen. Visualized portion of knee and ankle joints are unremarkable. SOFT TISSUE: Normal. IMPRESSION: Unremarkable radiographs of the right tibia and fibula. DATA REPOSITORY: RADIATION DOSE DELIVERED:
--- NOTE | 2025-02-21 | DI.RAD_ITS ---
Exam(s) XR FOOT RT COMPLETE EXAM: XR FOOT RT COMPLETE CLINICAL HISTORY: PAIN RT HEEL,FOOT,M79.671,RT LOWER LEG WOUND,? OSTEO. TECHNIQUE: 2D digital imaging was performed. Three views. COMPARISON: No exams were available for comparison FINDINGS: BONES: No acute fracture is present. No bony destructive lesion is seen. Enthesophyte at Achilles insertion. JOINTS: No dislocation present. Mild degenerative changes. SOFT TISSUE: Vascular calcifications. IMPRESSION: Calcaneal enthesophyte. No destructive bony lesion. DATA REPOSITORY: RADIATION DOSE DELIVERED:
== END ==
LOC: DI 08:27
PROVIDERS: PCP Nurse Practitioner Family; Visit Provider Family Medicine
DX: S81.801D Unspecified open wound, right lower leg, subsequent encounter (principal); M79.671 Pain in right foot
CPT/HCPCS: 73590; 73630